=== PATIENT | female | born 1965 | race Caucasian/White ===

== ENCOUNTER → 2019-05-10 07:37 | Outpatient (CLI) | payer BC, SELFPAY ==
[2018-11-09 14:33] VITALS: BMI 31.9
--- NOTE | 2019-05-10 07:39 | BI_ITS ---
MAMMOGRAPHY - UNILATERAL SCREENING: RIGHT BREAST REASON FOR EXAM: Female, 54 years old. Routine annual screening examination (unilateral). PERTINENT HISTORY: Personal history of breast cancer. The patient is status post left mastectomy. TECHNIQUE: Digital unilateral breast lary (3D mammographic acquisition) in the CC and MLO projections. 2-D mediolateral oblique (MLO) and craniocaudad (CC) views of both breasts were obtained. CAD: Full Field Digital Mammography with Computer Added Detection was performed. COMPARISON: Comparison is made with prior ocular examination dated May 06, 2018 and March 10, 2013. FINDINGS: Breast Composition: The breasts are heterogeneously dense, which may obscure small masses. There are no dominant masses or suspicious calcifications. A tissue clip marker is seen in the upper mid slightly medial portion of the right breast. This is unchanged. No other significant abnormalities are identified. There has been no significant change since the prior study. BI/SCREEN MAMM (CAD) W/LARY UNI R IMPRESSION: Stable unilateral screening mammogram. Yearly follow-up mammogram recommended. (A) ASSESSMENT CATEGORY: BIRADS Category 2: Benign. A letter regarding these results will be sent to the patient by the facility within 30 days. Approximately 10% of breast cancers are not detected by mammography. A normal mammogram should not delay biopsy of a clinically suspicious abnormality. [id number] Electronically Signed: Tc Rodriguez, at 9:26 EDT , Service support ,
== END ==
PROVIDERS: Family Provider Family Medicine; PCP Family Medicine; Referring Provider Internal Medicine Medical Oncology; Visit Provider Internal Medicine Medical Oncology
DX: Z12.31 Encounter for screening mammogram for malignant neoplasm of breast (principal); Z85.3 Personal history of malignant neoplasm of breast
CPT/HCPCS: 77061; 77063; 77067; G0279

== ENCOUNTER → 2019-05-21 09:33 | Outpatient (CLI) | payer BC, SELFPAY ==
[2019-05-17 12:56] VITALS: BMI 30.5
--- NOTE | 2019-05-21 09:36 | NM_ITS ---
CLINICAL: 54-year-old female with reported history of carcinoma of the breast with current complaint of diffuse arthralgia. WHOLE BODY 99m Tc MDP RADIONUCLIDE BONE SCINTIGRAPHY COMPARISON: None available FINDINGS: Following the intravenous administration of 25.0 mCi of 99m Tc MDP, whole body bone images reveal: 1. Increased radiopharmaceutical concentration is identified in the upper cervical spine posteriorly on the right, mid cervical spine posteriorly on the left, acromioclavicular and sternoclavicular compartments of both shoulders, posterior midline sacrum, bilateral wrist articulations, posterior compartments of both ankles, the right-left mid and forefoot. 2. The remaining skeletal structures are scintigraphically unremarkable with normal-appearing renal images and urinary bladder activity identified. NM/Bone Scan Whole Body IMPRESSION: 1. The increase in radiopharmaceutical concentration identified in the cervical spine and sacrum, bilateral shoulders, right and left wrists, ankles bilaterally, the right-left mid and forefoot is most consistent with degenerative arthritis. 2. There is no definitive scintigraphic evidence of skeletal metastatic disease or large articulation synovial inflammation on review of whole body projections. Electronically Signed: Archie Garza DO at 9:40 EDT Tel , Service support ,
--- NOTE | 2019-05-21 09:36 | RAD_ITS ---
STUDY: X-RAY CHEST REASON FOR EXAM: Female, 54 years old. History of breast cancer, bone pain TECHNIQUE: PA and lateral views of the chest. COMPARISON: None. FINDINGS: The lungs are clear and expanded. There is no demonstrated pleural abnormality. Normal size heart. Surgical clip projects over the anterior mediastinum/chest. Normal visualized pulmonary arteries. Normal visualized aortic arch and descending thoracic aorta. Normal visualized thoracic spine. Normal visualized ribs, clavicles, and shoulders. There is no demonstrated abnormality of the visualized soft tissue structures of the upper abdomen. RAD/Chest PA and Lateral IMPRESSION: No acute cardiopulmonary process. Electronically Signed: Reji Weeks MD ([facility]) at 15:55 EDT , Service support ,
== END ==
PROVIDERS: Family Provider Family Medicine; PCP Family Medicine; Referring Provider Internal Medicine Medical Oncology; Visit Provider Internal Medicine Medical Oncology
DX: M85.80 Other specified disorders of bone density and structure, unspecified site (principal); Z85.3 Personal history of malignant neoplasm of breast
CPT/HCPCS: 71046; 78306

== ENCOUNTER → 2020-05-12 09:57 | Outpatient (CLI) | payer BC, SELFPAY ==
[2019-06-02 14:20] VITALS: BMI 31.2
--- NOTE | 2020-05-12 09:57 | BI_ITS ---
MAMMOGRAPHY - UNILATERAL SCREENING: RIGHT BREAST REASON FOR EXAM: Female, 55 years old. Routine annual screening examination (unilateral). PERTINENT HISTORY: Personal history of breast cancer. Prior left mastectomy. TECHNIQUE: Digital unilateral breast lary (3D mammographic acquisition) in the CC and MLO projections. 2-D mediolateral oblique (MLO) and craniocaudad (CC) views of both breasts were obtained. CAD: Full Field Digital Mammography with Computer Added Detection was performed. COMPARISON: Comparison is made with prior examination dated 05/10/2019 and 03/10/2013. FINDINGS: Breast Composition: The breasts are heterogeneously dense, which may obscure small masses. There are no dominant masses or suspicious calcifications. A tissue clip marker is once again seen in the upper mid slightly medial portion of the right breast No other significant abnormalities are identified. There has been no significant change since the prior study. BI/SCREEN MAMM (CAD) W/LARY UNI R IMPRESSION: Stable unilateral screening mammogram. Yearly follow-up mammogram recommended. (A) ASSESSMENT CATEGORY: BIRADS Category 2: Benign. A letter regarding these results will be sent to the patient by the facility within 30 days. Approximately 10% of breast cancers are not detected by mammography. A normal mammogram should not delay biopsy of a clinically suspicious abnormality. [id number] Electronically Signed: Tc Rodriguez, at 13:38 EDT , Service support ,
== END ==
PROVIDERS: PCP Family Medicine; Referring Provider Internal Medicine Medical Oncology; Visit Provider Internal Medicine Medical Oncology
DX: Z12.31 Encounter for screening mammogram for malignant neoplasm of breast (principal); Z85.3 Personal history of malignant neoplasm of breast
CPT/HCPCS: 77063; 77067

== ENCOUNTER 2020-10-31 12:34 | Outpatient (RCR) | payer BC, SELFPAY ==
[2019-06-02 14:20] VITALS: BMI 31.2
[2020-10-31] MEDS: COVID-19 VACC, MRNA(PFIZER)/PF 30 MCG/0.3 ML SYRINGE IM (18:14)
[2020-11-21] MEDS: COVID-19 VACC, MRNA(PFIZER)/PF 30 MCG/0.3 ML SYRINGE IM (17:59)
== END 2020-10-31 23:59 ==
LOC: IMMUN 12:34
PROVIDERS: PCP Family Medicine; Referring Provider Family Medicine; Visit Provider Family Medicine
DX: Z23 Encounter for immunization (principal)
CPT/HCPCS: 0001A; 0002A; 91300

== ENCOUNTER → 2021-05-14 10:15 | Outpatient (CLI) | payer BC, SELFPAY ==
[2019-06-02 14:20] VITALS: BMI 31.2
--- NOTE | 2021-05-14 10:19 | BI_ITS ---
MAMMOGRAPHY - UNILATERAL SCREENING: RIGHT BREAST REASON FOR EXAM: Female, 56 years old. Routine annual screening examination (unilateral). PERTINENT HISTORY: Personal history of breast cancer. Prior left mastectomy. Prior right breast biopsy. TECHNIQUE: Digital unilateral breast lary (3D mammographic acquisition) in the CC and MLO projections. 2-D mediolateral oblique (MLO) and craniocaudad (CC) views of both breasts were obtained. CAD: Full Field Digital Mammography with Computer Added Detection was performed. COMPARISON: Comparison is made with prior examination of 05/12/2020 and 05/10/2019. FINDINGS: Breast Composition: The breasts are heterogeneously dense, which may obscure small masses. There are no dominant masses or suspicious calcifications. A tissue clip marker is once again seen in the upper central portion of the right breast. No other significant abnormalities are identified. There has been no significant change since the prior study. BI/SCREEN MAMM (CAD) W/LARY UNI R IMPRESSION: Stable unilateral screening mammogram. Yearly follow-up mammogram recommended. (A) ASSESSMENT CATEGORY: BIRADS Category 2: Benign. A letter regarding these results will be sent to the patient by the facility within 30 days. Approximately 10% of breast cancers are not detected by mammography. A normal mammogram should not delay biopsy of a clinically suspicious abnormality. [id number] Electronically Signed: Tc Rodriguez MD at 11:03 EDT , Service support ,
== END ==
PROVIDERS: PCP Family Medicine; Referring Provider Internal Medicine Medical Oncology; Visit Provider Internal Medicine Medical Oncology
DX: Z12.31 Encounter for screening mammogram for malignant neoplasm of breast (principal); Z85.3 Personal history of malignant neoplasm of breast
CPT/HCPCS: 77063; 77067

== ENCOUNTER → 2022-05-15 | Outpatient (CLI) | payer BC, SELFPAY ==
--- NOTE | 2022-05-15 09:07 | BI_ITS ---
MAMMOGRAPHY - UNILATERAL SCREENING: RIGHT BREAST REASON FOR EXAM: Female, 57 years old. Routine annual screening examination (unilateral). PERTINENT HISTORY: Personal history of breast cancer. History of prior left mastectomy and right breast reduction surgery. TECHNIQUE: Digital unilateral breast lary (3D mammographic acquisition) in the CC and MLO projections. 2-D mediolateral oblique (MLO) and craniocaudad (CC) views of both breasts were obtained. CAD: Full Field Digital Mammography with Computer Added Detection was performed. COMPARISON: Comparison is made with prior study 05/14/2021 and 05/12/2020. FINDINGS: Breast Composition: The breasts are heterogeneously dense, which may obscure small masses. There are no dominant masses or suspicious calcifications. A tissue clip marker is seen in the upper central portion of the right breast. No other significant abnormalities are identified. There has been no significant change since the prior study. BI/SCREEN MAMM (CAD) W/LARY UNI R IMPRESSION: Stable unilateral screening mammogram. Yearly follow-up mammogram recommended. (A) ASSESSMENT CATEGORY: BIRADS Category 2: Benign. A letter regarding these results will be sent to the patient by the facility within 30 days. Approximately 10% of breast cancers are not detected by mammography. A normal mammogram should not delay biopsy of a clinically suspicious abnormality. [id number] Electronically Signed: Tc Rodriguez MD at 9:42 EDT ,
== END | disposition home or self-care (01) ==
LOC: OPBI 09:06
PROVIDERS: PCP Family Medicine; Visit Provider Internal Medicine Medical Oncology
DX: Z12.31 Encounter for screening mammogram for malignant neoplasm of breast (principal)
CPT/HCPCS: 77063; 77067

== ENCOUNTER → 2023-11-17 | Outpatient (CLI) | payer BC, SELFPAY ==
[2023-11-17 10:10] LABS: Absolute Lymphocyte Count 1.97 X10^3/uL (0.83-4.51); Absolute Neutrophil Count 3.3 X10^3/uL (2.0-7.7); Basophil# 0.04 X10^3/uL; Basophil% 0.7 % (0-1); Eosinophil# 0.24 X10^3/uL; Eosinophils% 4.1 % (0-5); Hematocrit 40.3 % (37-47); Hemoglobin 13.2 g/dL (12.0-15.0); Lymphocyte # 1.97 X10^3/ul (0.83-4.51); Lymphocyte % 33.3 % (19-41); Mean Corp Hgb Conc 32.8 g/dL (32-36); Mean Corpuscular Hgb 30.2 pg (27.0-32.0); Mean Corpuscular Volume 92.2 fL (81-99); Mean Platelet Vol. 10.2 fl (6.2-12.0); Monocyte# 0.37 X10^3/uL; Monocyte% 6.3 % (0-10); NRBC Flagged by Analyzer 0 % (0-5); Neutrophil # 3.27 X10^3/uL (2.7-7.7); Neutrophil % 55.3 % (47-70); Platelet Count 312 K/mm3 (150-450); RBC Distribution Width CV 12.2 % (11.6-14.6); RBC Distribution Width SD 41.3 fl (35.1-43.9); Red Blood Count 4.37 M/mm3 (4.2-5.4); White Blood Count 5.9 K/mm3 (4.4-11.0)
[2023-11-17 10:31] LABS: Vitamin D,25 Hydroxy 37.1 ng/mL
[2023-11-17 10:49] LABS: ALB/GLOB Ratio 0.9 RATIO (0.9-2.4); AST(SGOT) 24 U/L (15-37); Alanine Aminotransfer ALT/SGPT 27 U/L (13-56); Albumin, Serum 3.4 g/dL (3.2-5.0); Alkaline Phosphatase 91 U/L (45-117); Anion Gap 5 (5-15); BUN 16 mg/dL (7-18); BUN/Creat Ratio 23.6 RATIO (10-20); Calcium,Total 8.7 mg/dL (8.5-10.1); Chloride 109 mmol/L (98-107); Cholesterol 238 mg/dL (200); Creatinine, Serum 0.68 mg/dL (0.55-1.02); EST Glomerular Filtration Rate 95 mL/min (>60); Est Glom Filt Rate - Afr Amer 115 mL/min (>60); Globulin 3.6 g/dL (2.2-4.2); Glucose 94 mg/dL (74-106); High Density Lipoprotein 61 mg/dL; Potassium 3.9 mmol/L (3.5-5.1); Sodium Level 141 mmol/L (136-145); Thyroid Stim Hormone (TSH) 0.84 uIU/mL (0.358-3.74); Triglycerides 79 mg/dL; Very Low Density Lipoprotein 16 mg/dL (5-40)
== END | disposition home or self-care (01) ==
PROVIDERS: PCP Family Medicine; Referring Provider Family Medicine; Visit Provider Family Medicine
DX: E66.9 Obesity, unspecified (principal); E55.9 Vitamin D deficiency, unspecified
CPT/HCPCS: 36415; 80053; 80061; 82306; 84443; 85025

== ENCOUNTER → 2024-06-08 | Outpatient (CLI) | payer BC, SELFPAY ==
--- NOTE | 2024-06-08 17:00 | RAD_ITS ---
INDICATION: UTI EXAMINATION/TECHNIQUE: X-RAY - XR Abdomen 1 View COMPARISON: No relevant prior comparison study available FINDINGS: BOWEL GAS PATTERN: Non-obstructive. No bowel or stomach distention. FREE AIR: Not assessed on a single supine view. ORGANOMEGALY: Not seen. CALCIFICATIONS: No abnormal calcifications observed. LOWER CHEST: Not included on this exam. BONES AND SOFT TISSUES: No acute pathology. RAD/Abdomen Single View IMPRESSION: Non-obstructive bowel gas pattern. Electronically Signed: Russ Romero MD at 15:18 EDT ,
--- OUTSIDE RECORDS SUMMARY | 2024-06-08 17:33 | XMS RPT_ITS | CCD ---
Author Organization [facility] Care Team Providers Care Rnfa Name Role Phone ANTONI, LORENZO A Unavailable Unavailable DUSTY, MICHELE Unavailable Unavailable SONIANDRIA K Unavailable Unavailable ANTONI, LORENZO A Unavailable Unavailable DUSTY, MICHELE Unavailable Unavailable SONI ANDRIA K Unavailable Unavailable DUSTY, MICHELE Unavailable Unavailable SONIANDRIA K Unavailable Unavailable SONI ANDRIA K Unavailable Unavailable ANTONI, LORENZO A Unavailable Unavailable DUSTY, MICHELE Unavailable Unavailable ANDRIA SONI Unavailable Unavailable BHSHAMARNAFRANKI MILLER J Unavailable Unavailable FRANKI PRATHER J Unavailable Unavailable ANDRIA SONI Unavailable Unavailable Andria Soni Primary Care Provider Unavailable Primary Care Provider Unavailabl e Allergies Allergy Classification Reported Allergen(s) Allergy Type Date of Onset Reaction(s) Facility Adhesive Tape (1 source) Adhesive Tape Substance Allergy 06-01-2013 [facility] Macrolides (antibiotic) (1 source) Azithromycin Drug Allergy 03-21-2009 [facility] (1 source) Adhesive Tape Allergy to substance 06-01-2013 [facility] (1 source) Azithromycin Drug Allergy 03-21-2009 [facility] Medications Completed/Discontinued Medications Medication Drug Class(es) Dates Sig (Normalized) Sig (Original) acetaminophen 500 mg / HYDROcodone bitartrate 5 mg oral tablet (2 sources) Opioid Agonist take 1 tablet by mouth every six hours as needed acetaminophen-HY DROcodone 5-500 mg tablet Take 1 tablet by mouth every 6 hours as needed. 0 Active Comment on above: Take 1 tablet by chrissy th every 6 hours as needed. B.ANI/L.ACI/L.WIL/L. PLAN/L.VIANEY (PROBIOTIC FORMULA ORAL) (2 sources) B.ANI/L.ACI/L.SA L/L.PLAN/L.VIANEY (PROBIOTIC FORMULA ORAL) Take by mouth. 0 Active Comment on above: Take by mouth. buPROPion (2 sources) Aminoketone BUPROPION HCL (WELLBUTRIN ORAL) Take by mouth. 0 Active Comment on above: Take by mouth. gabapentin 300 mg oral capsule (2 sources) Anti-epileptic Agent Start: 07-16-2013 take 1 capsule by mouth every eight hours as needed gabapentin 300 mg capsule Take 1 capsule by mouth three times daily as needed. 90 capsule 6 07/16/2013 Active Comment on above: Take 1 capsule by mo [facility] three times daily as needed. tamoxifen 20 mg oral tablet (2 sources) Estrogen Agonist/Antagonist Start: 03-14-2015 tamoxifen (NOLVADEX) 20 mg tablet TAKE 1 TABLET DAILY 90 tablet 3 03/14/2015 Active Start: 06-01-2013 End: 04-11-2014 take 1 tablet by mouth once daily tamoxifen 20 mg tablet Take 1 tablet by mouth once daily. 90 tablet 3 06/01/2013 04/11/2014 Discontinued Comment on above: [facility] TAKE 1 TABLET DAILY Problems Active Problems Problem Classification Problem Date Documented Da te Episodic/Chronic Cancer of breast (2 sources) Malignant tumor of breast ; Translations: [Malignant neoplasm of unspecified site of unspecified female breast] Onset: 03-22-2013 03-22-2013 Chronic Unclassified (1 source) Unspecified lump in unspecified breast / N63.0(ICD-10) Onset: 05-06-2018 Unclassified (1 source) Malignant neoplasm of unspecified site of left female breast / C50.912(ICD-10) Onset: 05-06-2018 Past or Other Problems Problem Classification Problem Date Documented Da te Episodic/Chronic Other screening for suspected conditions (not mental disorders or infectious disease) (2 sources) Mammography abnormal; Translations: [Other abnormal and inconclusive findings on diagnostic imaging of breast] Onset: 02-16-2013 02-16-2013 Episodic Other skin disorders (2 sources) Sebaceous cyst of skin; Translations: [Sebaceous cyst] Onset: 03-24-2009 03-24-2009 Episodic Unclassified (1 source) Unspecified lump in unspecified breast; Translations: [Unspecified lump in unspecified breast] Onset: 05-06-2018 Unclassified (1 source) Malignant neoplasm of unspecified site of left female breast; Translations: [Malignant neoplasm of unspecified site of left female breast] Onset: 05-06-2018 Results Test Name Value Interpretation Reference Range Facility [facility] 03-25-2023 CNPN Telephone (HEMAWS) ----- ADENGEETHA ([id number]) 1965 F Date Time Provider Department 03/25/23 TRAMAINE BOOTHE During your visit today, we recorded the following information about you: Yoselyn Esquivel 03/25/2023 2:55 PM Signed Patient called asking to transfer back to our office. Last visit was 2013. She is having records faxed to [employer]. She states she is seen annually with mamm. Didi Chouhdary LPN 04/08/2023 1:45 PM Addendum Records received. She is 10 years out from dx. Lashawn says she can continue her f/u with PCP. Left stating the same. Didi Choudhary LPN Allergies As of Date: 03/25/2023 Noted Allergy Reaction TAPE (ADHESIVE TAPE (ROSINS)) 06/01/2013 2 - Rash Z-PACK (AZITHROMYCIN) 03/21/2009 2 - Rash Date Reviewed: 12/06/2013 Reviewed by: Kitty Kohler Ma - Fully Assessed Reason for Visit: Appointment [[id number]] Prescriptions as of 04/08/2023 - tamoxifen (NOLVADEX) 20 mg tablet TAKE 1 TABLET DAILY - BUPROPION HCL (WELLBUTRIN ORAL) Take by mouth. - acetaminophen-HYDROcodone 5-500 mg tablet Take 1 tablet by mouth every 6 hours as needed. - B.ANI/L.ACI/L.WIL/L.PLAN/ L.VIANEY (PROBIOTIC FORMULA ORAL) Take by mouth. - gabapentin 300 mg capsule Take 1 capsule by mouth three times daily as needed. Problem List As Of Date 03/25/2023 Noted Resolved SEBACEOUS CYST [L72.3] 03/24/2009 Abnormal mammogram [R92.8] 02/16/2013 Breast cancer [C50.919] 03/22/2013 Encounter Status:Closed by DIDI CHOUDHARY LPN on 04/08/[address] [facility] MAMMO DIAGNOSTIC WITH LARY B ILATERALon 05-06-2018 MAMMO DIAGNOSTIC WITH LARY BILATERAL EXAM: US BREAST LIMITED UNILATERAL LEFT, MAMMO DIAGNOSTIC WITH LARY BILATERAL,05/06/2018 10:41 AM (accession [id number]), 05/06/2018 11:20 AM ([id number])CLINIC AL INDICATIONS: Left mastectomy and reconstruction. PalpableabnormalityCOMPAR ADRI: Compared to prior study dated April 23, 2017, March 20, 2016,July 21, 2015, September 01, 2014MAMMOGRAM TECHNIQUE:2-D MLO and CC views were obtained of the right breasts. 3-D MLO and CCdigital tomosynthesis images were also acquired. Left MLO and CC views withspot compression were obtained. Computer aided detection was utilized. MAMMOGRAPHIC FINDINGS: The breasts are heterogeneously dense, which may obscure small masses. Rightbreast is unchanged in appearance is stable biopsy clip. No suspicious masses,suspicious calcifications or areas of distortion identified in the rightbreast.Images were taken the left breast in the region the patient's symptoms theupper outer aspect. On some views are suggested of fat-containing lesions.There are no definite suspicious findings.ULTRASOUND TECHNIQUE:Multiple real-time juares-scale images of the left breast in the 1:00 o'clockaxis are performed. Color Doppler was used to assess vascular flow.ULTRASOUND FINDINGS:2 adjacent hypoechoic masses are seen adjacent to the patient's implant in thesymptomatic region and 1:00 zone 3+. The first measures 1.2 x 0.6 x 1.4 cm andthe second measures 1.0 x 0.5 x 1.1 cm. When compared to the exam of 2014 this may represent coalescence of the previously seen fat necrosis inthis region. Per the patient these have felt relatively stable since the 2014ex. Additionally there are suggestions represents fat necrosis in themammogram. These are therefore considered probably benign.IMPRESSION:1. Probable benign fat necrosis in the symptomatic region of the leftreconstructed breast. Six-month follow-up left ultrasound recommended todocument stability.2. Negative right mammogram.BI-RADS: 3: Probably benignRecommendation: 6-month follow-up.Recommendation Laterality: Left Abnormal [facility] MAMMO DIAGNOSTIC WITH LARY R IGHTon 05-06-2018 MAMMO DIAGNOSTIC WITH LARY RIGHT EXAM: MAMMO DIAGNOSTIC WITH LARY RIGHT, 05/06/2018 09:40 AMCLINICAL INDICATIONS: 53-year-old female with history of left breast IDCstatus post mastectomy in 2012. No current breast complaints.COMPARISON: No prior studies available for comparison.TECHNIQUE:2-D MLO and CC views were obtained of the right breast. 3-D MLO and CC digitaltomosynthesis images were also acquired. Computer aided detection wasutilized.FINDINGS: The breast has scattered areas of fibroglandular density. Stable biopsy clipin the upper central right breast. There are no new suspicious masses,calcifications, or architectural distortions. IMPRESSION:No specific mammographic evidence of malignancy.BI-RADS: 2: BenignRecommendation: Routine mammography.Recommendatio n Laterality: Right I personally viewed and interpreted these images and I have reviewed andapproved this report. Normal [facility] US BREAST LIMITED UNILATERAL LEFTon 05-06-2018 US BREAST LIMITED UNILATERAL LEFT EXAM: US BREAST LIMITED UNILATERAL LEFT, MAMMO DIAGNOSTIC WITH LARY BILATERAL,05/06/2018 10:41 AM (accession [id number]), 05/06/2018 11:20 AM ([id number])CLINIC AL INDICATIONS: Left mastectomy and reconstruction. PalpableabnormalityCOMPAR ADRI: Compared to prior study dated April 23, 2017, March 20, 2016,July 21, 2015, September 01, 2014MAMMOGRAM TECHNIQUE:2-D MLO and CC views were obtained of the right breasts. 3-D MLO and CCdigital tomosynthesis images were also acquired. Left MLO and CC views withspot compression were obtained. Computer aided detection was utilized. MAMMOGRAPHIC FINDINGS: The breasts are heterogeneously dense, which may obscure small masses. Rightbreast is unchanged in appearance is stable biopsy clip. No suspicious masses,suspicious calcifications or areas of distortion identified in the rightbreast.Images were taken the left breast in the region the patient's symptoms theupper outer aspect. On some views are suggested of fat-containing lesions.There are no definite suspicious findings.ULTRASOUND TECHNIQUE:Multiple real-time juares-scale images of the left breast in the 1:00 o'clockaxis are performed. Color Doppler was used to assess vascular flow.ULTRASOUND FINDINGS:2 adjacent hypoechoic masses are seen adjacent to the patient's implant in thesymptomatic region and 1:00 zone 3+. The first measures 1.2 x 0.6 x 1.4 cm andthe second measures 1.0 x 0.5 x 1.1 cm. When compared to the exam of 2014 this may represent coalescence of the previously seen fat necrosis inthis region. Per the patient these have felt relatively stable since the 2014exam. Additionally there are suggestions represents fat necrosis in themammogram. These are therefore considered probably benign.IMPRESSION:1. Probable benign fat necrosis in the symptomatic region of the leftreconstructed breast. Six-month follow-up left ultrasound recommended todocument stability.2. Negative right mammogram.BI-RADS: 3: Probably benignRecommendation: 6-month follow-up.Recommendation Laterality: Left Abnormal [facility] Encounters Encounter Date Encounter Type Care Provider Facility Start: 03-25-2023 Telephone encounter Tramaine adkins DO Work Phone: Hematology/Oncology Comment on above: Appointment Start: 05-06-2018 Patient encounter FRANKI SANCHEZ I [facility] Start: 05-06-2018 Patient encounter LORENZO Vivar [facility] Start: 10-22-2017 Patient encounter MICHELE MONTANO [facility] Start: 03-30-2014 End: 03-30-2014 Telephone encounter Lashawn Ponce APRN.[employer] Work Phone: Mammogram Procedures Date Procedure Procedure Detail Performing Clinician Start: 02-07-2014 Mammography Lashawn [place] [facility] Work Phone: Plan of Treatment Date Care Activity Detail Author Start: 04-18-2023 Influenza vaccination INFLUENZA (#1) [facility] Start: 08-18-2022 DEPRESSION ASSESSMENT DEPRESSION ASS ESSMENT [facility] Start: 04-18-2021 Influenza vaccination INFLUENZA (Sea son Ended) [facility] Start: 02-01-2018 HPV TESTING HPV TESTING [facility] Start: 02-01-2018 PAP TESTING PAP TESTING [facility] Start: 02-25-2016 Screening for malign ant neoplasm of colon [facility] Start: 02-25-2016 SHINGRIX VACCINE (1 of 2) SHINGRIX V ACCINE (1 of 2) [facility] Start: 02-07-2015 Mammography MAMMOGRAM [facility] Start: 2011 COLOGUARD (FIT-DNA) COLOGUARD (FIT-D NA) [facility] Start: 2011 Colonoscopy COLONOSCOPY [facility] Start: 2011 COLORECTAL CANCER SCREENING COLORECTAL CANCER SCREENING [facility] Start: [address] COLONOGRAPHY [facility] Start: 2011 DIABETES SCREEN DIABETES SCREEN [facility] Start: 2011 FECAL OCCULT BLOOD FECAL OCCULT BLOO D [facility] Start: 2011 LIPID SCREEN LIPID SCREEN [facility] Start: 2011 SIGMOIDOSCOPY SIGMOIDOSCOPY [facility] Start: 1985 Urine microalbumin profile DTAP,TDAP ,TD (1 - Tdap) [facility] Start: 02-25-1984 HEPATITIS C SCREENING HEPATITIS C SC REENING [facility] Start: 02-25-1984 HIV SCREENING HIV SCREENING [facility] Start: 1978 Adult depression scr eening assessment DEPRESSION SCREENING [facility] Start: 1965 COVID-19 VACCINE (#1) COVID-19 VACCI NE (#1) [facility] Start: 1965 HEPATITIS B (1 of 3 - 3-dose series) HEPATITIS B (1 of 3 - 3-dose series) [facility] Payers Date Payer Category Payer Unknown [id number] 2013 Unknown 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 [id number] 2013-Present Indemnity [id number] Social History Date Type Detail Facility Start: 02-01-2013 End: 12-06-2013 Tobacco smoking status NHIS Never smoker [facility] Work Phone: Start: 02-01-2013 End: 12-06-2013 Tobacco use and exposure Never used [facility] Start: 12-06-2013 End: 03-31-2022 Alcohol intake Current drinker of alcohol (finding) [facility] Start: 06-01-2013 Alcohol Comment rarely [facility] Start: 1965 Sex Assigned At Not on file [facility] Start: 03-31-2022 History of Social function [facility] Start: 03-31-2022 Tobacco use panel [facility] Note 04-08-2023 Telephone Encounter - Didi Choudhary LPN - 04/08/2023 11:42 AM EDTTelephone Encounter - Yoselyn Esquivel - 03/25/2023 2:53 PM EDT Note Date & Type Note Facility 04-08-2023 Miscellaneous Notes Formattin g of this note might be different from the original. Records received. She is 10 years out from dx. Lashawn says she can continue her f/u with PCP. Left VM stating the same. Didi Choudhary LPN Patient called asking to transfer back to our office. Last visit was 2013. She is having records faxed to [phone]. She states she is seen annually with mamm. documented in this encounter [facility] Note 03-30-2014 Telephone Encounter - Lashawn Ponce (Police Dispatcher) - 03/30/2014 3:24 PM EDTTelephone Encounter - Coleen Ken - 03/30/2014 2:46 PM EDT Note Date & Type Note Facility 03-30-2014 Miscellaneous Notes I do not see it in EPIC. Lashawn Ponce CNP Did the patient ever provide a report following her imaging at [facility]? Thanks. documented in this encounter [facility] Summary Purpose Family History No Family History Records FoundNo Family History Records Found Advance Directives No Advanced Directives Records FoundNo Advanced Directives Records Found Additional Source Comments INFORMATION SOURCE (unrecogn ized section and content) DATE CREATED AUTHOR 06/02/2018 [facility] DATE CREATED AUTHOR AUTHOR'S EVENS ATION 04/09/2023 [facility] Source Comments (unrecognize d section and content) In the event this informatio n is protected by the Federal Confidentiality of Alcohol and Drug Abuse Patient Records regulations: The Federal rules restrict any use of the information to criminally investigate or prosecute any alcohol or drug abuse patient.[facility] the event this information is protected by the Federal Confidentiality of Alcohol and Drug Abuse Patient Records regulations: The Federal rules restrict any use of the information to criminally investigate or prosecute any alcohol or drug abuse patient.[facility] Reason for Visit (unrecogniz ed section and content) Reason Comments Appointment FOR RECORDS PERTAINING TO PATIENTS WHO ARE OR HAVE BEEN ENROLLED IN A CHEMICAL DEPENDENCY/SUBSTANCEABUSE PROGRAM, SOME INFORMATION MAY BE OMITTED. This clinical summary was aggregated from multiple sources. Caution should be exercised in using it in the provision of clinical care. This summary normalizes information from multiple sources, and as a consequence, information in this document may materially change the coding, format and clinical context of patient data. In addition, data may be omitted in some cases. CLINICAL DECISIONS SHOULD BE BASED ON THE PRIMARY CLINICAL RECORDS. [facility] [employer] [facility]. provides no warranty or guarantee of the accuracy or completeness of information in this document.
== END | disposition home or self-care (01) ==
PROVIDERS: PCP Family Medicine; Referring Provider Family Medicine; Visit Provider Family Medicine
DX: R10.9 Unspecified abdominal pain (principal); N39.0 Urinary tract infection, site not specified
CPT/HCPCS: 74018

== ENCOUNTER → 2024-12-03 | Outpatient (CLI) | payer BC, SELFPAY ==
--- NOTE | 2024-12-03 15:18 | BI_ITS ---
EXAM: SCREEN MAMM (CAD) W/LARY UNI R 12/03/2024 CLINICAL HISTORY: F, Age 59 y/o , SCREENING TECHNIQUE: Right screening digital breast tomosynthesis with 2D and 3D images. Computer aided detection. COMPARISON: Prior exam(s) dated 05/07/2022, 05/14/2021. FINDINGS: TISSUE DENSITY: The breast tissue is heterogenously dense, which may obscure small masses. The mammogram demonstrates that the patient has dense breasts. Supplemental screening with whole breast ultrasound or MRI may be considered for further evaluation. Bilateral Breast Mammographic Findings: No significant masses, calcifications or other abnormalities are identified. BI/SCREEN MAMM (CAD) W/LARY UNI R IMPRESSION: Right Breast: BIRADS 1 NEGATIVE. OVERALL FINAL ASSESSMENT: BIRADS 1 NEGATIVE. RECOMMENDATION: Routine annual follow-up in 1 Year A letter with findings and recommendations will be mailed to the patient. Reading Location: [id number]
== END | disposition home or self-care (01) ==
LOC: OPBI 15:14
PROVIDERS: PCP Family Medicine; Referring Provider Family Medicine; Visit Provider Family Medicine
DX: Z12.31 Encounter for screening mammogram for malignant neoplasm of breast (principal)
CPT/HCPCS: 77063; 77067

== ENCOUNTER → 2024-12-15 | Outpatient (CLI) | payer BC, SELFPAY ==
--- NOTE | 2024-12-15 14:55 | BD_ITS ---
PROCEDURE: DEXA BONE DENSITY STUDY 12/15/2024 REASON FOR EXAM: F, age 59 y/o . Patient is postmenopausal.. TECHNIQUE: DEXA scan of sites with data reported below. Scanner utilized: [employer]. REFERENCE LINKS: ISCD Adult Positions COMPARISON: None FINDINGS: BMD and T-SCORES Lumbar spine: 0.804 g/cm2, T-score -2.2 Levels: L1 through L4 Left femoral neck: 0.676 g/cm2, T-score -1.6 Left total hip: 0.816 g/cm2, T-score -1.0 Right femoral neck: 0.645 g/cm2, T-score -1.8 Right total hip: 0.770 g/cm2, T-score -1.4 The World Health Organization has defined the following categories based on bone density: Normal bone density: T-score equal to or greater than -1.0 Osteopenia: T-score between -1.0 and -2.5 Osteoporosis: T-score equal to or less than -2.5 FRAX (or Comparable) Fracture Risk Assessment: 10 Year Probability of Fracture: Major Osteoporotic Fracture: 14% Hip Fracture: 1.7% (Note: FRAX is not to be reported in setting of normal range bone density, osteoporosis on DEXA, known history of osteoporosis, prior osteoporotic hip or vertebral fracture, or for any patient undergoing pharmacological treatment for bone loss.) The National Osteoporosis Foundation (NOF) recommends pharmacological treatment for patients with a FRAX 10-year risk of 3% or higher for a hip fracture, or 20% or higher for a major osteoporotic fracture, to prevent osteoporosis and reduce fracture risk. The patient does meet the pharmacological treatment recommendations for prevention of osteoporosis. BD/Dexa Bone Density Study IMPRESSION: OSTEOPENIA. Recommend follow-up as clinically warranted. Reading Location: [id number]
== END | disposition home or self-care (01) ==
LOC: OPBD 14:51
PROVIDERS: PCP Family Medicine; Referring Provider Family Medicine; Visit Provider Family Medicine
DX: Z91.89 Other specified personal risk factors, not elsewhere classified (principal)
CPT/HCPCS: 77080

== ENCOUNTER → 2024-12-22 | Outpatient (CLI) | payer BC, SELFPAY ==
--- NOTE | 2024-12-22 12:58 | US_ITS ---
PROCEDURE: BREAST LIMITED UNILATERAL 12/22/2024 REASON FOR EXAM: 59-year-old female presents with right breast pain. Personal history of left breast cancer status post mastectomy with reconstruction in 2012. TECHNIQUE: Targeted right breast ultrasound. COMPARISON: Mammogram 12/03/2024. FINDINGS: Right breast ultrasound was targeted to the lateral right breast. There are no suspicious sonographic findings in the area of patient's reported pain in the lateral right breast. Otherwise, the breast tissue appears sonographically normal. No cyst, solid mass, or suspicious shadowing. US/Breast Limited Unilateral IMPRESSION: Impression: There are no suspicious findings in the area of patient's reported pain in the lateral right breast. Clinical management is recommended for the pain. Birads: BI-RADS 1: NEGATIVE. RECOMMEND ANNUAL MAMMOGRAPHIC SCREENING. Reading Location: [id number]
== END | disposition home or self-care (01) ==
PROVIDERS: PCP Family Medicine
DX: N64.4 Mastodynia (principal)
CPT/HCPCS: 76642

== ENCOUNTER → 2025-01-24 | Outpatient (CLI) | payer BC, SELFPAY ==
--- NOTE | 2025-01-24 14:55 | RAD_ITS ---
PROCEDURE: HAND MIN 3 VIEWS 01/24/2025 REASON FOR EXAM: LEFT HAND INJURY TECHNIQUE: 4 view(s) of the left hand COMPARISON: None. FINDINGS: Normal visualized carpal bones. Normal first metacarpus. Normal second through fifth metacarpi. Normal phalanges. There is no demonstrated fracture. Normal carpal articulations. Normal carpometacarpal (CMC) articulation of the thumb. Normal metacarpophalangeal (MCP) joint of the thumb. Normal interphalangeal (IP) joint of the thumb. Normal second through fifth carpometacarpal (CMC) joints. Normal second through fifth metacarpophalangeal (MCP) joints. Normal proximal interphalangeal (PIP) and distal interphalangeal (DIP) joints of the second through fifth fingers. RAD/Hand Min 3 Views IMPRESSION: No evidence for acute abnormality. Reading Location: [facility]
--- OUTSIDE RECORDS SUMMARY | 2025-01-24 23:52 | XMS RPT_ITS | CCD ---
Author Organization [facility] CliniSyok Care Team Providers Care Group Art Supervisor Name Role Phone ANTONI, LORENZO A Unavailable Unavailable DUSTY, MICHELE Unavailable Unavailable SNOI, ANDRIA K Unavailable Unavailable ANTONI, LORENZO A Unavailable Unavailable DUSTY, MICHELE Unavailable Unavailable SONI, ANDRIA K Unavailable Unavailable DUSTY, MICHELE Unavailable Unavailable SONI, ANDRIA K Unavailable Unavailable SONI, ANDRIA K Unavailable Unavailable ANTONI, LORENZO A Unavailable Unavailable DUSTY, MICHELE Unavailable Unavailable SONI, ANDRIA K Unavailable Unavailable BHAVNAGRI, SHARUKH J Unavailable Unavailable BHAVNAGRI, SHARUKH J Unavailable Unavailable SONI, ANDRIA K Unavailable Unavailable Soni, Andria K Primary Care Provider [phone] Unavailable Primary Care Provider UnavailEstrella Chopra MD Primary Care Provider Estrella Camilo MD Attending Provider Estrella Camilo MD Referring Provider McMorrow FERRIS WHEEL ATTENDANT-CYaw Attending Provider McMorrow FERRIS WHEEL ATTENDANT-C, Yaw Referring Provider Ton, Oresteson Referring Unavailable Ton, Chalon Primary Care Unavailable Ton, Chalon Attending Unavailable Ton, Chalon Referring Unavailable Ton, Chalon Primary Care Unavailable Ton, Chalon Attending Unavailable Ton, Chalon Referring Unavailable Ton, Chalon Primary Care Unavailable Ton, Chalon Attending Unavailable Ton, Chalon Primary Care Unavailable McMorrow FERRIS WHEEL ATTENDANTYaw Attending Unavailable McMorrow FERRIS WHEEL ATTENDANTYaw Referring Unavailable Allergies Allergy Classification Reported Allergen(s) Allergy Type Date of Onset Reaction(s) Facility Adhesive Tape (1 source) Adhesive Tape Substance Allergy 3 [facility] Macrolides (antibiotic) (1 source) Azithromycin Drug Allergy 9 [facility] (1 source) Adhesive Tape Allergy to substance 0 [facility] Work Phone: (4 sources) Azithromycin Drug Allergy 9 [facility] (1 source) Adhesive Tape Allergy to substance 3 [facility] (3 sources) Adhesive Tape; Translations: [adhesive tape] Allergy to substance 2 [facility] (1 source) Azithromycin Drug Allergy 1 [facility] Repository Medications Completed/Discontinued Medications Medication Drug Class(es) Dates [...] on above: Take 1 capsule by mo [facility] three times daily as needed. [...] above: Take 1 tablet by chrissy th once daily. TAKE 1 TABLET DAILY Problems Active Problems Problem Classification Problem Date Documented Da te Episodic/Chronic Cancer of breast (2 sources) Malignant tumor of breast ; Translations: [Malignant neoplasm of unspecified site of unspecified female breast] Onset: 03-22-2013 03-22-2013 Chronic Cancer of breast (3 sources) History of malignant neoplasm of breast; Translations: [Personal history of malignant neoplasm of breast] 06-06-2021 Episodic Comment on above: Left Breast Cancer s tage IA(pT1a pN0 M0), ER/CO positive, Her2 negative.Finished adjuvant Tamoxifen therapy in April 2018.No evidence of disease clinically. Nonmalignant breast conditions (3 sources) Mammographic breast tissue appearance; Translations: [Dense breast tissue on mammogram] Onset: 12-27-2024 06-03-2022 Episodic Other screening for suspected conditions (not mental disorders or infectious disease) (3 sources) Mammography abnormal; Translations: [Other abnormal and inconclusive findings on diagnostic imaging of breast] Onset: 02-16-2013 02-16-2013 Episodic Residual codes; unclassified (3 sources) Generalized aches and pains; Translations: [Pain, unspecified] 05-17-2019 Episodic Residual codes; unclassified (1 source) Other specified personal risk factors, not elsewhere classified; Translations: [Other specified personal risk factors, not elsewhere classified] Onset: 12-18-2024 Episodic Unclassified (1 source) Unspecified lump in unspecified breast / N63.0(ICD-10) Onset: 05-06-2018 Unclassified (1 source) Malignant neoplasm of unspecified site of left female breast / C50.912(ICD-10) Onset: 05-06-2018 Past or Other Problems Problem Classification Problem Date Documented Da te Episodic/Chronic Abdominal pain (1 source) Unspecified abdominal pain; Translations: [Unspecified abdominal pain] Onset: 06-30-2024 Episodic Other skin disorders (2 sources) Sebaceous [...] Test Name Value Interpretation Reference Range Facility Breast Limited Unilateralon 12-22-[address] [facility] Services [address] [place] [address] Breast Limited Unilateral MR#: [id number] Acct: [id number] Name: GRACIELA SAMANIEGO Rep #: [id number] : 1965 F 59 From: Safia Mishra MD PCP: Dr. Estrella Camilo MD Status: REG CLI Study: Breast Limited Unilateral Date of Exam: Exam# [id number] Ordering Dr: Yaw Delvalle NP, NP -Veena PROCEDURE: BREAST LIMITED UNILATERAL 12/22/2024 REASON FOR EXAM: 59-year-old female presents with right breast pain. Personal history of left breast cancer status post mastectomy with reconstruction in 2012. TECHNIQUE: Targeted right breast ultrasound. COMPARISON: Mammogram 12/03/2024. FINDINGS: Right breast ultrasound was targeted to the lateral right breast. There are no suspicious sonographic findings in the area of patient's reported pain in the lateral right breast. Otherwise, the breast tissue appears sonographically normal. No cyst, solid mass, or suspicious shadowing. US/Breast Limited Unilateral IMPRESSION: Impression: There are no suspicious findings in the area of patient's reported pain in the lateral right breast. Clinical management is recommended for the pain. Birads: BI-RADS 1: NEGATIVE. RECOMMEND ANNUAL MAMMOGRAPHIC SCREENING. Reading Location: [facility] CC: Yaw Delvalle; Dr. Estrella Camilo MD Automatic Edger: Signed Normal [facility] Dexa Bone Density Studyon Dexa Bone Density Study [facility] [address] [place] [address] Dexa Bone Density Study MR#: [id number] Acct: [id number] Name: GRACIELA SAMANIEGO Rep #: [id number] : 1965 F 59 From: Naheed Vivar PCP: Dr. Estrella Camilo MD Status: DEP CLI Study: Dexa Bone Density Study Date of Exam: 12/15/24 Exam# [id number] Ordering Dr: Estrella Camilo MD PROCEDURE: DEXA BONE DENSITY STUDY 12/15/2024 REASON FOR EXAM: F, age 59 y/o . Patient is postmenopausal.. TECHNIQUE: DEXA scan of sites with data reported below. Scanner utilized: Mimiboard. REFERENCE LINKS: ISCD Adult Positions COMPARISON: None FINDINGS: BMD and T-SCORES Lumbar spine: 0.804 g/cm2, T-score -2.2 Levels: L1 through L4 Left femoral neck: 0.676 g/cm2, T-score -1.6 Left total hip: 0.816 g/cm2, T-score -1.0 Right femoral neck: 0.645 g/cm2, T-score -1.8 Right total hip: 0.770 g/cm2, T-score -1.4 The World Health Organization has defined the following categories based on bone density: Normal bone density: T-score equal to or greater than -1.0 Osteopenia: T-score between -1.0 and -2.5 Osteoporosis: T-score equal to or less than -2.5 FRAX (or Comparable) Fracture Risk Assessment: 10 Year Probability of Fracture: Major Osteoporotic Fracture: 14% Hip Fracture: 1.7% (Note: FRAX is not to be reported in setting of normal range bone density, osteoporosis on DEXA, known history of osteoporosis, prior osteoporotic hip or vertebral fracture, or for any patient undergoing pharmacological treatment for bone loss.) The National Osteoporosis Foundation (NOF) recommends pharmacological treatment for patients with a FRAX 10-year risk of 3% or higher for a hip fracture, or 20% or higher for a major osteoporotic fracture, to prevent osteoporosis and reduce fracture risk. The patient does meet the pharmacological treatment recommendations for prevention of osteoporosis. BD/Dexa Bone Density Study IMPRESSION: OSTEOPENIA. Recommend follow-up as clinically warranted. Reading Location: [id number] CC: Dr. Estrella Camilo MD Automatic Edger: Signed Normal [facility] SCREEN MAMM (CAD) W/LARY [facility] Dmitry 12-03-2024 SCREEN MAMM (CAD) W/LARY UNI R [facility] [address] [place] [address] SCREEN MAMM (CAD) W/LARY UNI R MR#: [id number] Acct: [id number] Name: GRACIELA SAMANIEGO Rep #: [id number] : 1965 F 59 From: Safia Mishra MD PCP: Dr. Estrella Camilo MD Status: REG CLI Study: SCREEN MAMM (CAD) W/LARY UNI R Date of Exam: 0 12/03/24 Exam# [id number] Ordering Dr: Estrella Camilo MD EXAM: SCREEN MAMM (CAD) W/LARY UNI R 12/03/2024 CLINICAL HISTORY: F, Age 59 y/o , SCREENING TECHNIQUE: Right screening digital breast tomosynthesis with 2D and 3D images. Computer aided detection. COMPARISON: Prior exam(s) dated 05/07/2022, 05/14/2021. FINDINGS: TISSUE DENSITY: The breast tissue is heterogenously dense, which may obscure small masses. The mammogram demonstrates that the patient has dense breasts. Supplemental screening with whole breast ultrasound or MRI may be considered for further evaluation. Bilateral Breast Mammographic Findings: No significant masses, calcifications or other abnormalities are identified. BI/SCREEN MAMM (CAD) W/LARY UNI R IMPRESSION: Right Breast: BIRADS 1 NEGATIVE. OVERALL FINAL ASSESSMENT: BIRADS 1 NEGATIVE. RECOMMENDATION: Routine annual follow-up in 1 Year A letter with findings and recommendations will be mailed to the patient. Reading Location: [facility] CC: Dr. Estrella Camilo MD Automatic Edger: Signed Normal [facility] Abdomen Single Viewon [address] [facility] [address] [place], [place] [address] Abdomen Single View MR#: [id number] Acct: [id number] Name: GRACIELA SAMANIEGO Rep #: [id number] : 1965 F 59 From: Russ Benjamin PCP: Dr. Estrella Caimlo MD Status: REG CLI Study: Abdomen Single View Date of Exam: 06/08/24 Exam# [id number] Ordering [place]: [place] [id number] INDICATION: UTI EXAMINATION/TECHNIQUE: X-RAY - XR Abdomen 1 View COMPARISON: No relevant prior comparison study available FINDINGS: BOWEL GAS PATTERN: Non-obstructive. No bowel or stomach distention. FREE AIR: Not assessed on a single supine view. ORGANOMEGALY: Not seen. CALCIFICATIONS: No abnormal calcifications observed. LOWER CHEST: Not included on this exam. BONES AND SOFT TISSUES: No acute pathology. RAD/Abdomen Single View IMPRESSION: Non-obstructive bowel gas pattern. Electronically Signed: Russ Romero MD at 15:18 EDT , CC: Dr. Estrella Camilo MD Automatic Edger: Signed Normal [facility] Absolute lymphocyte countOrd ered By: Estrella Camilo on 11-17-2023 Lymphocytes Auto (Unsp spec) [#/Vol] 1.97 10*3/uL 0.83-4.51 [facility] Automated lymphocyte count a s percentage of total leukocytesOrdered By: Estrella Camilo on 11-17-2023 Lymphocytes/100 WBC Auto (Unsp spec) 33.3 % 19-41 [facility] Basophil percentageOrdered B y: Estrella Camilo on 11-17-2023 Basophils/100 WBC (Bld) 0.7 % 0-1 [facility] Bilirubin [Mass/Vol] 0.50 mg/dL 0.20-1.00 [facility] Comment on above: For patients on eltr ombopag therapy, use of Dimension [place] TBIL is not recommended. Chloride [Moles/Vol] 109 mmol/L 98-107 [facility] Cholesterol [Mass/Vol] 238 mg/dL <200 [facility] Comment on above: <200 mg/dL Desirable 200-240 mg/dL Borderline >240 mg/dL High Risk Eosinophils/100 WBC (Bld) 4.1 % 0-5 [facility] Glucose [Mass/Vol] 94 mg/dL 74-106 [facility] Hemoglobin (Bld) [Mass/Vol] 13.2 g/dL 12.0-15.0 [facility] Monocytes/100 WBC (Bld) 6.3 % 0-10 [facility] Neutrophils (Bld) [#/Vol] 3.3 10*3/uL 2.0-7.7 [facility] Neutrophils/100 WBC (Bld) 55.3 % 47-70 [facility] Potassium [Moles/Vol] 3.9 mmol/L 3.5-5.1 [facility] Protein [Mass/Vol] 7.0 g/dL 6.4-8.2 [facility] Sodium [Moles/Vol] 141 mmol/L 136-145 [facility] Triglyceride [Mass/Vol] 79 mg/dL <199 [facility] Comment on above: The drugs N-Acetylcy steine and Metamizole may falsely depress this assay.Serum Triglycerides Reference Interval Normal <150 mg/dL Borderline high 150 - 199 mg/dL High 200 - 499 mg/dL Very High > or = 500 mg/dL WBC (Bld) [#/Vol] 5.9 10*3/uL 4.4-11.0 [facility] Determination of erythrocyte mean corpuscular volume (MCV)Ordered By: Estrella Camilo on 11-17-2023 MCV (RBC) [Entitic vol] 92.2 fL 81-99 [facility] Erythrocyte distribution wid th ratioOrdered By: Estrella Ton on 11-17-2023 Erythrocyte distribution width (RBC) [Ratio] 12.2 % 11.6-14.6 [facility] Erythrocyte distribution wid th standard deviationOrdered By: Estrella Camilo on 11-17-2023 Erythrocyte distribution width (RBC) [Entitic vol] 41.3 fL 35.1-43.9 [facility] Hematocrit Auto (Bld) [Volum e fraction]Ordered By: Estrella Camilo on 11-17-2023 Hematocrit (Bld) [Volume fraction] 40.3 % 37-47 [facility] Immature granulocytes/100 WB C Auto (Bld)Ordered By: Estrella Camilo on 11-17-2023 Immature granulocytes/100 WBC (Bld) 0.300 % 0.0-0.9 [facility] Comment on above: IG% - Immature Granu locytes (promyelocytes, myelocytes and metamyelocytes) > 1% indicates that a LEFT SHIFT is Present. Laboratory - Chemistry and C hemistry - challengeOrdered By: Estrella Camilo on 11-17-2023 Albumin/Globulin [Mass ratio] 0.9 {ratio} 0.9-2.4 [facility] ALP [Catalytic activity/Vol] 91 U/L 45-117 [facility] ALT [Catalytic activity/Vol] 27 U/L 13-56 [facility] Cholesterol in HDL [Mass/Vol] 61 mg/dL >40 [facility] Comment on above: The drugs N-Acetylcy steine and Metamizole may falsely depress this assay. Reference Range HDL <40 mg/dL Low HDL Cholesterol HDL >or= 60 mg/dL High HDL Cholesterol Cholesterol in LDL [Mass/Vol] 161 mg/dL 0-130 [facility] CO2 [Moles/Vol] 27.0 mmol/L 21.0-32.0 [facility] Globulin (S) [Mass/Vol] 3.6 g/dL 2.2-4.2 [facility] Urea nitrogen/Creatinine [Mass ratio] 23.6 mg/mg 10-20 [facility] Laboratory - Hematology and Cell countsOrdered By: Estrella Camilo on 11-17-2023 MCH (RBC) [Entitic mass] 30.2 pg 27.0-32.0 [facility] MCHC (RBC) [Mass/Vol] 32.8 g/dL 32-36 [facility] Nucleated RBC/100 WBC (Bld) [Ratio] 0 % 0-5 [facility] Platelet mean volume (Bld) [Entitic vol] 10.2 fL 6.2-12.0 [facility] Platelets (Bld) [#/Vol] 312 10*3/uL 150-450 [facility] No Panel InformationOrdered By: Estrella Camilo on 11-17-2023 Estimated GFR (MDRD) Amer 115 mL/min >60 [facility] Comment on above: GFR Calc Estimated GFR (MDRD) Non-Af Amer 95 mL/min >60 [facility] Comment on above: Non- GFR Calc Vitamin D 25-Hydroxy 37.1 ng/mL [facility] Comment on above: Vitamin D 25(OH) Sta tus Range Deficiency <20 ng/mL (50nmol/L) Insufficiency 20 - 30 ng/mL (50 - 75 nmol/L) Sufficiency 30 - 100 ng/mL (75 - 250 nmol/L) Toxicity >100 ng/mL (>250 nmol/L) VLDL Cholesterol 16 mg/dL 5-40 [facility] RBC Auto (Bld) [#/Vol]Ordere d By: Estrella Camilo on 11-17-2023 RBC (Bld) [#/Vol] 4.37 10*6/uL 4.2-5.4 [facility] Serum or plasma calcium xuan urement (mass/volume)Ordered By: Estrella Camilo on 11-17-2023 Calcium [Mass/Vol] 8.7 mg/dL 8.5-10.1 [facility] Serum or plasma creatinine m easurement (mass/volume)Ordered By: Estrella Camilo on 11-17-2023 Creatinine [Mass/Vol] 0.68 mg/dL 0.55-1.02 [facility] Comment on above: The validity of the calculated GFR & GFRAA in patients over 70 years has not been determined. Clinical correlation is essential. Serum or plasma thyroid stim ulating hormone (TSH) measurement (units/volume)Ordered By: Estrella Camilo on 11-17-2023 TSH Qn 0.84 uIU/mL 0.358-3.74 [facility] Serum or plasma urea nitroge n measurement (mass/volume)Ordered By: Estrella Camilo on 11-17-2023 Urea nitrogen [Mass/Vol] 16 mg/dL 7-18 [facility] Thin prep Papanicolaou smear with manual screeningOrdered By: Estrella Camilo on 11-17-2023 Thin prep Papanicolaou smear with manual screening 3.4 g/dL 3.2-5.0 [facility] Thin prep Papanicolaou smear with manual screening 24 U/L 15-37 [facility] Thin prep Papanicolaou smear with manual screening 5 5-15 [facility] [place] 03-25-2023 CNPN Telephone (HEMAWS) GRACIELA SAMANIEGO ([id number]) 1965 F Date Time Provider Department 03/25/23 TRAMAINE BOOTHE During your visit today, we recorded the following information about you: Yoselyn Esquivel 03/25/2023 2:55 PM Signed Patient called asking to transfer back to our office. Last visit was 2013. She is having records faxed to [facility]. She states she is seen annually with mamm. Didi Choudhary LPN 04/08/2023 1:45 PM Addendum Records received. [...] HCL (WELLBUTRIN ORAL) Take by mouth. - acetaminophen-HYDROcodo ne 5-500 mg tablet Take 1 tablet by mouth every 6 hours as needed. - B.ANI/L.ACI/L.WIL/L.AUDIE N/L.VIANEY (PROBIOTIC FORMULA ORAL) Take by mouth. - gabapentin 300 mg capsule Take 1 capsule by mouth three times daily as needed. Problem List As Of Date 03/25/2023 Noted Resolved SEBACEOUS CYST [L72.3] 03/24/2009 Abnormal mammogram [R92.8] 02/16/2013 Breast cancer [C50.919] 03/22/2013 Encounter Status:Closed by SRAVANMARYNellie SANABRIA on 04/08/23 Normal [facility] MAMMO DIAGNOSTIC WITH LARY B ILATERALon 05-06-2018 MAMMO DIAGNOSTIC WITH LARY BILATERAL EXAM: US BREAST LIMITED UNILATERAL LEFT, MAMMO DIAGNOSTIC WITH LARY BILATERAL,05/06/2018 10:41 AM (accession [id number]), 05/06/2018 11:20 AM ([id number])CLIN ICAL INDICATIONS: Left mastectomy and reconstruction. PalpableabnormalityCOMP ARISON: Compared to prior study dated April 23, [...] Negative right mammogram.BI-RADS: 3: Probably benignRecommendation: 6-month follow-up.Recommendatio n Laterality: Left Abnormal [facility] MAMMO DIAGNOSTIC WITH LARY R IGHTon 05-06-2018 MAMMO DIAGNOSTIC WITH LARY RIGHT EXAM: MAMMO DIAGNOSTIC WITH LARY RIGHT, 05/06/2018 09:40 AMCLINICAL INDICATIONS: 53-year-old female with history of left breast IDCstatus post mastectomy in 2012. No current breast complaints.COMPARISON: No prior studies available for comparison.TECHNIQUE:2- D MLO and CC views were obtained of the right breast. 3-D MLO and CC digitaltomosynthesis images were also acquired. Computer aided detection wasutilized.FINDINGS: The breast has scattered areas of fibroglandular density. Stable biopsy clipin the upper central right breast. There are no new suspicious masses,calcifications, or architectural distortions. IMPRESSION:No specific mammographic evidence of malignancy.BI-RADS: 2: BenignRecommendation: Routine mammography.Recommendat ion Laterality: Right I personally viewed and interpreted these images and I have reviewed andapproved this report. Normal [facility] US BREAST LIMITED UNILATERAL LEFTon 05-06-2018 US BREAST LIMITED UNILATERAL LEFT EXAM: US BREAST LIMITED UNILATERAL LEFT, MAMMO DIAGNOSTIC WITH LARY BILATERAL,05/06/2018 10:41 AM (accession [id number]), 05/06/2018 11:20 AM ([id number])CLIN ICAL INDICATIONS: Left mastectomy and reconstruction. PalpableabnormalityCOMP ARISON: Compared to prior study dated April 23, [...] Negative right mammogram.BI-RADS: 3: Probably benignRecommendation: 6-month follow-up.Recommendatio n Laterality: Left Abnormal [facility] Vital Signs Date Time Vital Sign Value Performing Clinician Franklyn oconnell 12-15-2024 14:53-0400 Body height 162.56 cm Estrella Camilo MD Work Phone: [facility] Encounters Encounter Date Encounter Type Care Provider Facility Start: 12-22-2024 End: 12-22-2024 ambulatory Estrella Camilo MD Work Phone: [facility] Work Phone: Start: 12-22-2024 End: 12-22-2024 [facility] F[facility]IS WHEEL ATTENDANT-C [facility] Work Phone: Start: 12-22-2024 End: 12-22-2024 ambulatory [facility] Facility:[facility] Start: 12-15-2024 End: 12-15-[address] Estrella Camilo MD -Outpatient Bone Densitometry Work Phone: Start: 12-15-2024 End: 12-15-2024 ambulatory [facility] Facility:[facility] Start: 12-03-2024 End: 12-03-[address] Estrella Camilo MD -Outpatient Breast Imaging Work Phone: Start: 12-03-2024 End: 12-03-2024 ambulatory [facility] Facility:[facility] Start: 06-08-2024 End: 06-08-2024 ambulatory [facility] Facility:[facility] Start: 11-17-2023 End: 11-17-2023 ambulatory [facility] Work Phone: Start: 11-17-2023 End: 11-17-2023 Patient encounter procedure [facility] Work Phone: Start: 03-25-2023 Telephone encounter Tramaine adkins DO Work Phone: Hematology/Oncology Comment on above: Appointment Start: 05-15-2022 End: 05-15-2022 ambulatory [facility] Work Phone: Start: 05-15-2022 End: 05-15-2022 Patient encounter procedure [facility] Start: 05-06-2018 Patient encounter FRANKI SANCHEZ I [facility] Start: 05-06-2018 Patient encounter LORENZO Vivar [facility] Start: 10-22-2017 Patient encounter MICHELE MONTANO [facility] Start: 03-30-2014 End: 03-30-2014 Telephone encounter Lashawn Ponce APRN.CNP Work Phone: Mammogram Procedures Date Procedure Procedure Detail Performing Clinician Start: 12-22-2024 Ultrasonography of breast Estrella Camilo MD Work Phone: Start: 12-15-2024 Dual energy X-ray absorptiometry Estrella Camilo MD Work Phone: Start: 12-03-2024 Screening mammograph y of right breast Estrella Camilo MD Work Phone: Start: 05-15-2022 Screening mammograph y of right breast Start: 02-07-2014 Mammography Lashawn lugo APRN.CNP Work Phone: Plan of Treatment Date Care Activity Detail Author Start: 04-18-2023 Influenza vaccination INFLUENZA (#1) [facility] Start: 08-18-2022 DEPRESSION ASSESSMENT DEPRESSION ASS ESSMENT [facility] Start: 04-18-2021 Influenza vaccination INFLUENZA (Sea son Ended) [facility] Start: 02-01-2018 HPV TESTING HPV TESTING [facility] Start: 02-01-2018 PAP TESTING PAP TESTING [facility] Start: 02-25-2016 Screening for malign ant neoplasm of colon [facility] Start: 02-25-2016 SHINGRIX VACCINE (1 of 2) SHINGRIX V ACCINE (1 of 2) [facility] Start: 02-07-2015 Mammography MAMMOGRAM [facility] Start: 2011 COLOGUARD (FIT-DNA) COLOGUARD (FIT-D NA) [facility] Start: 2011 Colonoscopy COLONOSCOPY [facility] Start: 2011 COLORECTAL CANCER SCREENING COLORECTAL CANCER SCREENING [facility] Start: [address] COLONOGRAPHY [facility] Start: 2011 DIABETES SCREEN DIABETES SCREEN [facility] Start: 2011 FECAL OCCULT BLOOD FECAL OCCULT BLOO D [facility] Start: 2011 LIPID SCREEN LIPID SCREEN [facility] Start: 2011 SIGMOIDOSCOPY SIGMOIDOSCOPY [facility] Start: 1985 Urine microalbumin profile DTAP,TDAP ,TD (1 - Tdap) [facility] Start: 02-25-1984 HEPATITIS C SCREENING HEPATITIS C SC REENING [facility] Start: 02-25-1984 HIV SCREENING HIV SCREENING [facility] Start: 1978 Adult depression scr eening assessment DEPRESSION SCREENING [facility] Start: 1965 COVID-19 VACCINE (#1) COVID-19 VACCI NE (#1) [facility] Start: 1965 HEPATITIS B (1 of 3 - 3-dose series) HEPATITIS B (1 of 3 - 3-dose series) [facility] Immunizations Immunization Date Immunization Notes Care Provider Fa cility 11-21-2020 Covid (Pfizer) [facility] 10-31-2020 Covid (Pfizer) [facility] Payers Date Payer Category Payer Self-pay [id number] 2024 Unknown [id number] 2024 Self-pay [id number] 2024 Unknown [id number] 2016 Unknown [id number] 2013 Unknown 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MED [id number] 2013-Present Indemnity [id number] Unknown ANTHEM [id number] Unknown [id number] Unknown [id number] Unknown [id number] Unknown [id number] Social History Date Type Detail Facility Start: 12-06-2013 End: 05-31-2020 Tobacco smoking status NHIS Never smoker [facility] Work Phone: Start: 02-01-2013 End: 12-06-2013 Tobacco use and exposure Never used [facility] Start: 12-06-2013 End: 03-31-2022 Alcohol intake Current drinker of alcohol (finding) [facility] Start: 06-01-2013 Alcohol Comment rarely [facility] Start: 1965 Sex Assigned At Not on file [facility] Start: 05-31-2020 [facility] Start: 1965 Sex Assigned At Female [facility] Start: 03-31-2022 History of Social function [facility] Start: 03-31-2022 Tobacco use panel [facility] Radiology Diagnostic study note 12-22-2024 Note Date & Type Note Facility 12-22-2024 [address] note [facility] Imaging Services [address] [place] [address] Breast Limited Unilateral MR#: [id number] Acct: [id number] Name: GRACIELA SAMANIEGO Rep #: [id number] : 1965 F [id number] From: Shannen Mishra MD PCP: Dr. Estrella Camilo MD Status: REG CL I Study:Breast Limited Unilateral Date of Exam: 12/22/24 Exam# [id number] Ordering Dr: Yaw Delvalle NP [employer]END[employer]-C PROCEDURE: BREAST LIMITED UNILATERAL 12/22/2024 REASON FOR EXAM: 59-year-old female presents with right breast pain. Personal history of left breast cancer status post mastectomy with reconstruction in 2012. TECHNIQUE: Targeted right breast ultrasound. COMPARISON: Mammogram 12/03/2024. FINDINGS: Right breast ultrasound was targeted to the lateral right breast. There are no suspicious sonographic findings in the area of patient's reported pain in the lateral right breast. Otherwise, the breast tissue appears sonographically normal. No cyst, solid mass, or suspicious shadowing. US/Breast Limited Unilateral IMPRESSION: Impression: There are no suspicious findings in the area of patient's reported pain in the lateral right breast. Clinical management is recommended for the pain. Birads: BI-RADS 1: NEGATIVE. RECOMMEND ANNUAL MAMMOGRAPHIC SCREENING. Reading Location: [id number] CC: Yaw FARAH [employer] WHE[employer] ATTENDANT-C Mook; Dr. Estrella Camilo MD ~ Automatic Edger: Signed [facility] Note 04-08-2023 Telephone Encounter - Didi Choudhary [...] Left stating the same. Didi Choudhary LPN Patient called asking to transfer back to our office. Last visit was 2013. She is having records faxed to [facility]. She states she is seen annually with mamm. documented in this encounter [facility] Note 03-30-2014 Telephone Encounter - Lashawn Ponce) - 03/30/2014 3:24 PM EDTTelephone Encounter - Coleen Ken - 03/30/2014 2:46 PM EDT Note Date & Type Note Facility 03-30-2014 Miscellaneous Notes I do not see it in EPIC. Lashawn Ponce CNP Did the patient ever provide a report following her imaging at [facility]? Thanks. documented in this encounter [facility] Evaluation note Note Date & Type Note Facility Evaluation note No assessment information availa ble [facility] Work Phone: Reason for referral (narrative) Note Date & Type Note Facility Reason for referral (narrative) No reason for referral information available [facility] Work Phone: Summary Purpose Family History No Family History Records Found Relationship Condition Age at Onset Recorded Date/T himanshu father Diabetes mellitus Unknown Heart failure Unknown uncle Diabetes mellitus Unknown grandmother Cerebrovascular accident (CVA) Unknown Advance Directives No Advanced Directives Records Found Advance Directive Response Recorded Date/ Time Advance Directives No June 4:34pm Living Will No November 09, 2018 4:55pm Power of Senior Assistant Manager No November 09 4:55pm Advance Directive Response Recorded Date/ Time Advance Directives No June 4:34pm Chief Complaint and Reason for Visit Chief Complaint SCREENING Chief Complaint Admit Date SCREENING December 03, 2024 3:1 4pm SCREENING December 15, 2024 2:5 1pm LUMP RT BREAST, PREV MASECTOMY OF LT RUSTY AST December 22, 2024 12:48pm Additional Source Comments INFORMATION SOURCE (unrecogn ized section and content) DATE CREATED AUTHOR 06/02/2018 [facility] DATE CREATED AUTHOR AUTHOR'S ORGANIZ ATION 04/09/2023 [facility] DATE CREATED AUTHOR AUTHOR'S ORGANIZ ATION 12/28/2024 [facility] Source Comments (unrecognize d section and content) In the event this informatio n is protected by the Federal Confidentiality of Alcohol and Drug Abuse Patient Records regulations: The Federal rules restrict any use of the information to criminally investigate or prosecute any alcohol or drug abuse patient.[facility] the event this information is protected by the Federal Confidentiality of Alcohol and Drug Abuse Patient Records regulations: The Federal rules restrict any use of the information to criminally investigate or prosecute any alcohol or drug abuse patient.[facility] Goals (unrecognized section and content) Goals may be documented in a n alternate sectionGoals may be documented in an alternate sectionGoals may be documented in an alternate section Reason for Visit (unrecogniz ed section and content) Reason Comments Appointment Care Teams (unrecognized sec tion and content) Team Status: Active Member Role Status Dates Dr. Andria Soni MD Family Provider Active Estrella Camilo MD Primary Care Provider Active Team Status: Inactive Member Role Status Dates Estrella Camilo MD Primary Care Provide r, Attending Provider, Referring Provider Active Team Status: Active Member Role Status Eloy Camilo MD Primary Care Provider Active Team Status: Inactive Member Role Status Eloy Camilo MD Primary Care Provider Active St art: December 03, 2024 End: December 03, 2024 Estrella Camilo MD Attending Provider Active Start : December 03, 2024 End: December 03, 2024 Estrella Camilo MD Referring Provider Active Start : December 03, 2024 End: December 03, 2024 Team Status: Inactive Member Role Status Eloy Camilo MD Primary Care Provider Active St art: December 15, 2024 End: December 15, 2024 Estrella Camilo MD Attending Provider Active Start : December 15, 2024 End: December 15, 2024 Estrella Camilo MD Referring Provider Active Start : December 15, 2024 End: December 15, 2024 Team Status: Inactive Member Role Status Eloy Camilo MD Primary Care Provider Active St art: December 22, 2024 End: December 22, 2024 Yaw Delvalle [employer]EL ATTENDANT, [employer] ATTENDANT-C Attending Provider Active Start: December 22, 2024 End: December 22, 2024 Yaw Delvalle [employer] WHEEL ATTENDANT, [employer] ATTENDANT-C Referring Provider Active Start: December 22, 2024 End: December 22, 2024 FOR RECORDS PERTAINING TO PATIENTS WHO ARE [...] BE BASED ON THE PRIMARY CLINICAL RECORDS. [facility] [employer] provides no warranty or guarantee of the accuracy or completeness of information in this document.
== END | disposition home or self-care (01) ==
LOC: MTRAD 14:51
PROVIDERS: PCP Family Medicine; Referring Provider Family Medicine; Visit Provider Family Medicine
DX: M79.642 Pain in left hand (principal)
CPT/HCPCS: 73130

== ENCOUNTER → 2025-08-05 | Outpatient (CLI) | payer BC, SELFPAY ==
--- OUTSIDE RECORDS SUMMARY | 2025-08-05 17:07 | XMS RPT_ITS | CCD ---
Author Organization [facility] CliniSyde Care Team Providers Care Hardwood Floor Finisher Name Role Phone ANTONI, LORENZO A Unavailable [...] Provider UnavailEstrella Chopra MD Primary Care Provider [phone] Estrella Camilo MD Attending Provider Ton QUIROZ, Estrella Referring Provider McMorrow PANEL RAISER OPERATOR-CYaw Attending Provider McMorrow PANEL RAISER OPERATOR-C, Yaw Referring Provider Estrella Camilo Attending Unavailable Ton, Chalon Referring Unavailable Ton, Chalon Primary Care Unavailable Ton, Chalon Attending Unavailable Ton, Chalon Referring Unavailable Ton, Chalon Primary Care Unavailable Ton, Chalon Attending Unavailable Ton, Chalon Referring Unavailable Ton, Chalon Primary Care Unavailable Ton, Chalon Attending Unavailable Ton, Chalon Referring Unavailable Ton, Chalon Primary Care Unavailable McMorrow PANEL RAISER OPERATORYaw Attending Unavailable McMorrow PANEL RAISER OPERATORYaw Referring Unavailable Ton, Chalon Primary Care Unavailable Allergies Allergy Classification Reported Allergen(s) Allergy Type Date of Onset Reaction(s) Facility Adhesive Tape (1 source) Adhesive Tape Substance Allergy 3 Rash [facility] Macrolides (antibiotic) (1 source) Azithromycin Drug Allergy 9 [facility] (1 source) Adhesive Tape Allergy to substance 0 [facility] Work Phone: (5 sources) Azithromycin Drug Allergy 9 [facility] (1 source) Adhesive Tape Allergy to substance 3 [facility] (4 sources) Adhesive Tape; Translations: [adhesive tape] Allergy to substance 2 [facility] (1 source) Azithromycin Drug Allergy 1 [facility] Repository Medications Completed/Discontinued Medications Medication Drug Class(es) [...] on above: Take 1 capsule by mo ut three times daily as needed. tamoxifen 20 [...] on above: Take 1 tablet by chrissy once daily. TAKE 1 TABLET DAILY Problems Active Problems Problem Classification Problem Date Documented Da te Episodic/Chronic Cancer of breast (2 sources) Malignant tumor of breast ; Translations: [Malignant neoplasm of unspecified site of unspecified female breast] Onset: 03-22-2013 03-22-2013 Chronic Cancer of breast (4 sources) History of malignant neoplasm of breast; Translations: [Personal history of malignant neoplasm of breast] 06-06-2021 Episodic Comment on above: Left Breast Cancer s tage IA(pT1a pN0 M0), ER/NH positive, Her2 negative.Finished adjuvant Tamoxifen therapy in April 2018.No evidence of disease clinically. Nonmalignant breast conditions (4 sources) Mammographic breast tissue appearance; Translations: [Dense breast tissue on mammogram] Onset: 12-27-2024 06-03-2022 Episodic Other connective tissue disease (1 source) Pain in left hand; Translations: [Pain in left hand] Onset: 01-28-2025 Episodic Other screening for suspected conditions (not mental disorders or infectious disease) (3 sources) Mammography abnormal; Translations: [Other abnormal and inconclusive findings on diagnostic imaging of breast] Onset: 02-16-2013 02-16-2013 Episodic Residual codes; unclassified (4 sources) Generalized aches and pains; Translations: [Pain, [...] Test Name Value Interpretation Reference Range Facility Hand Min 3 Viewson Hand Min 3 Views [facility] [address] [place], [place] [id number] Hand Min 3 Views MR#: [id number] Acct: [id number] Name: GRACIELA SAMANIEGO Rep #: [id number] : 1965 F 59 From: Heidi barajas MD PCP: Dr. Estrella Camilo MD Status: REG CLI Study: Hand Min 3 Views Date of Exam: 01/24/25 Exam# [id number] Ordering Dr: Estrella Camilo MD PROCEDURE: HAND MIN 3 VIEWS 01/24/2025 REASON FOR EXAM: LEFT HAND INJURY TECHNIQUE: 4 view(s) of the left hand COMPARISON: None. FINDINGS: Normal visualized carpal bones. Normal first metacarpus. Normal second through fifth metacarpi. Normal phalanges. There is no demonstrated fracture. Normal carpal articulations. Normal carpometacarpal (CMC) articulation of the thumb. Normal metacarpophalangeal (MCP) joint of the thumb. Normal interphalangeal (IP) joint of the thumb. Normal second through fifth carpometacarpal (CMC) joints. Normal second through fifth metacarpophalangeal (MCP) joints. Normal proximal interphalangeal (PIP) and distal interphalangeal (DIP) joints of the second through fifth fingers. RAD/Hand Min 3 Views IMPRESSION: No evidence for acute abnormality. Reading [facility] CC: Dr. Estrella Camilo MD Hydrography Teacher: Signed Normal [facility] Breast Limited Unilateralon 12-22-2024 Breast Limited Unilateral [facility] [address] [place], [place] [id number] Breast Limited Unilateral MR#: [id number] Acct: [id number] Name: GRACIELA SAMANIEGO Rep #: [id number] : 1965 F 59 From: Safia Mishra MD PCP: Dr. Estrella Camilo MD Status: REG CLI Study: Breast Limited Unilateral Date of Exam: Exam# [id number] Ordering Dr: Yaw Delvalle NP, NP PROCEDURE: BREAST LIMITED UNILATERAL 12/22/2024 REASON FOR [...] NEGATIVE. RECOMMEND ANNUAL MAMMOGRAPHIC SCREENING. Reading Location: [id number] CC: Yaw Delvalle; Dr. Estrella Camilo MD Hydrography Teacher: Signed Normal [facility] Dexa Bone Density Studyon Dexa Bone Density Study [facility] [address] [place] [address] Dexa Bone Density Study MR#: [id number] Acct: [id number] Name: GRACIELA SAMANIEGO Rep #: [id number] : 1965 F 59 From: Naheed Vivar PCP: Dr. Estrella Camilo MD Status: DEP CLI Study: Dexa Bone Density Study Date of Exam: 12/15/24 Exam# [id number] Ordering Dr: Estrella Camilo MD PROCEDURE: DEXA BONE DENSITY STUDY 12/15/2024 REASON FOR EXAM: F, age 59 y/o . Patient is postmenopausal.. TECHNIQUE: DEXA scan of sites with data reported below. Scanner utilized: Udex. REFERENCE LINKS: ISCD Adult Positions COMPARISON: None [...] Recommend follow-up as clinically warranted. Reading Location: DYN-EVTYN-RO CC: Dr. Estrella Camilo MD Hydrography Teacher: Signed Normal [facility] SCREEN MAMM (CAD) W/[facility] Dmitry 12-03-2024 SCREEN MAMM (CAD) W/LARY UNI R [facility] [address] [place] [address] SCREEN MAMM (CAD) W/LARY UNI R MR#: [id number] Acct: [id number] Name: JAMINTHAISGRACIELA KAY Rep #: [id number] : 1965 F 59 From: Safia Mishra MD PCP: Dr. Estrella Camilo MD Status: REG CLI Study: SCREEN MAMM (CAD) W/LARY UNI R Date of Exam: 0 12/03/24 Exam# [id number] Ordering Dr: Estrella Camilo MD EXAM: SCREEN [...] be mailed to the patient. Reading Location: [facility] CC: Dr. Estrella Camilo MD Hydrography Teacher: Signed Normal [facility] Abdomen Single Viewon 2023 Abdomen Single View [facility] [address] [place] [id number] Abdomen Single View MR#: [id number] Acct: [id number] Name: GRACIELA SAMANIEGO Rep #: [id number] : 1965 F 59 From: Russ Benjamin PCP: Dr. Estrella Camilo MD Status: REG CLI Study: Abdomen Single View Date of Exam: 06/08/24 Exam# [id number] Ordering [place]: [place] [id number] INDICATION: UTI EXAMINATION/TECHNIQUE: X-RAY - XR Abdomen [...] EDT , CC: Dr. Estrella Camilo MD Hydrography Teacher: Signed Normal [facility] Absolute lymphocyte countOrd ered By: Estrella Camilo on 11-17-2023 Lymphocytes Auto (Unsp spec) [#/Vol] 1.97 10*3/uL 0.83-4.51 [facility] Automated lymphocyte count a s percentage of total leukocytesOrdered By: Estrella Camilo on 11-17-2023 Lymphocytes/100 WBC Auto (Unsp spec) 33.3 % 19-41 [facility] Basophil percentageOrdered B y: Estrella Camilo on 11-17-2023 Basophils/100 WBC (Bld) 0.7 % 0-1 [facility] Bilirubin [Mass/Vol] 0.50 mg/dL 0.20-1.00 [facility] Comment on above: For patients on eltr ombopag therapy, use of Dimension Melba TBIL is not recommended. Chloride [Moles/Vol] 109 mmol/L 98-107 [facility] Cholesterol [Mass/Vol] 238 mg/dL <200 [facility] Comment on above: <200 mg/dL Desirable 200-240 mg/dL Borderline >240 mg/dL High Risk Eosinophils/100 WBC (Bld) 4.1 % 0-5 [facility] Glucose [Mass/Vol] 94 mg/dL 74-106 [facility] Hemoglobin (Bld) [Mass/Vol] 13.2 g/dL 12.0-15.0 [facility] Monocytes/100 WBC (Bld) 6.3 % 0-10 [facility] Neutrophils (Bld) [#/Vol] 3.3 10*3/uL 2.0-7.7 [facility] Neutrophils/100 WBC (Bld) 55.3 % 47-70 [facility] Potassium [Moles/Vol] 3.9 mmol/L 3.5-5.1 [facility] Protein [Mass/Vol] 7.0 g/dL 6.4-8.2 [facility] Sodium [Moles/Vol] 141 mmol/L 136-145 [facility] Triglyceride [Mass/Vol] 79 mg/dL <199 [facility] Comment on above: The drugs N-Acetylcy steine and Metamizole may falsely depress this assay.Serum Triglycerides Reference Interval Normal <150 mg/dL Borderline high 150 - 199 mg/dL High 200 - 499 mg/dL Very High > or = 500 mg/dL WBC (Bld) [#/Vol] 5.9 10*3/uL 4.4-11.0 [facility] Determination of erythrocyte mean corpuscular volume (MCV)Ordered By: Estrella Camilo on 11-17-2023 MCV (RBC) [Entitic vol] 92.2 fL 81-99 [facility] Erythrocyte distribution wid th ratioOrdered By: Estrella Ton on 11-17-2023 Erythrocyte distribution width (RBC) [Ratio] 12.2 % 11.6-14.6 [facility] Erythrocyte distribution wid th standard deviationOrdered By: Estrella Ton on 11-17-2023 Erythrocyte distribution width (RBC) [Entitic vol] 41.3 fL 35.1-43.9 [facility] Hematocrit Auto (Bld) [Volum e fraction]Ordered By: Estrella Camilo on 11-17-2023 Hematocrit (Bld) [Volume fraction] 40.3 % 37-47 [facility] Immature granulocytes/100 WB C Auto (Bld)Ordered By: Estrella Camilo on 11-17-2023 Immature granulocytes/100 WBC (Bld) 0.300 % 0.0-0.9 [facility] Comment on above: IG% - Immature Granu locytes (promyelocytes, myelocytes and metamyelocytes) > 1% indicates that a LEFT SHIFT is Present. Laboratory - Chemistry and C hemistry - challengeOrdered By: Estrella Camilo on 11-17-2023 Albumin/Globulin [Mass ratio] 0.9 {ratio} 0.9-2.4 [facility] ALP [Catalytic activity/Vol] 91 U/L 45-117 [facility] ALT [Catalytic activity/Vol] 27 U/L 13-56 [facility] Cholesterol in HDL [Mass/Vol] 61 mg/dL >40 [facility] Comment on above: The drugs N-Acetylcy steine and Metamizole may falsely depress this assay. Reference Range HDL <40 mg/dL Low HDL Cholesterol HDL >or= 60 mg/dL High HDL Cholesterol Cholesterol in LDL [Mass/Vol] 161 mg/dL 0-130 [facility] CO2 [Moles/Vol] 27.0 mmol/L 21.0-32.0 [facility] Globulin (S) [Mass/Vol] 3.6 g/dL 2.2-4.2 [facility] Urea nitrogen/Creatinine [Mass ratio] 23.6 mg/mg 10-20 [facility] Laboratory - Hematology and Cell countsOrdered By: Estrella Camilo on 11-17-2023 MCH (RBC) [Entitic mass] 30.2 pg 27.0-32.0 [facility] MCHC (RBC) [Mass/Vol] 32.8 g/dL 32-36 [facility] Nucleated RBC/100 WBC (Bld) [Ratio] 0 % 0-5 [facility] Platelet mean volume (Bld) [Entitic vol] 10.2 fL 6.2-12.0 [facility] Platelets (Bld) [#/Vol] 312 10*3/uL 150-450 [facility] No Panel InformationOrdered By: Estrella Camilo on 11-17-2023 Estimated GFR (MDRD) Amer 115 mL/min >60 [facility] Comment on above: GFR Calc Estimated GFR (MDRD) Non-Af Amer 95 mL/min >60 [facility] Comment on above: Non- GFR Calc Vitamin D 25-Hydroxy 37.1 ng/mL [facility] Comment on above: Vitamin D 25(OH) Sta tus Range Deficiency <20 ng/mL (50nmol/L) Insufficiency 20 - 30 ng/mL (50 - 75 nmol/L) Sufficiency 30 - 100 ng/mL (75 - 250 nmol/L) Toxicity >100 ng/mL (>250 nmol/L) VLDL Cholesterol 16 mg/dL 5-40 [facility] RBC Auto (Bld) [#/Vol]Ordere d By: Estrella Camilo on 11-17-2023 RBC (Bld) [#/Vol] 4.37 10*6/uL 4.2-5.4 [facility] Serum or plasma calcium xuan urement (mass/volume)Ordered By: Estrella Camilo on 11-17-2023 Calcium [Mass/Vol] 8.7 mg/dL 8.5-10.1 [facility] Serum or plasma creatinine m easurement (mass/volume)Ordered By: Estrella Camilo on 11-17-2023 Creatinine [Mass/Vol] 0.68 mg/dL 0.55-1.02 [facility] Comment on above: The validity of the calculated GFR & GFRAA in patients over 70 years has not been determined. Clinical correlation is essential. Serum or plasma thyroid stim ulating hormone (TSH) measurement (units/volume)Ordered By: Estrella Camilo on 11-17-2023 TSH Qn 0.84 uIU/mL 0.358-3.74 [facility] Serum or plasma urea nitroge n measurement (mass/volume)Ordered By: Estrella Camilo on 11-17-2023 Urea nitrogen [Mass/Vol] 16 mg/dL 7-18 [facility] Thin prep Papanicolaou smear with manual screeningOrdered By: Estrella Camilo on 11-17-2023 Thin prep Papanicolaou smear with manual screening 3.4 g/dL 3.2-5.0 [facility] Thin prep Papanicolaou smear with manual screening 24 U/L 15-37 [facility] Thin prep Papanicolaou smear with manual screening 5 5-15 [facility] CNPNon 03-25-2023 CNPN Telephone ([employer]) GRACIELA SAMANIEGO ([id number]) 1965 F Date Time Provider Department 03/25/23 TRAMAINE BOOTHE During your visit today, we recorded the following information about you: Fco King Yoselyn 03/25/2023 2:55 PM Signed Patient called asking to transfer back to our office. Last visit was 2013. She is having records faxed to [facility]. She states she is seen annually with [...] by DIDI CHOUDHARY LPN on 04/08/23 Normal [facility] MAMMO DIAGNOSTIC WITH LARY B ILATERALon 05-06-2018 MAMMO DIAGNOSTIC WITH LARY BILATERAL EXAM: US BREAST LIMITED UNILATERAL LEFT, MAMMO DIAGNOSTIC WITH LARY BILATERAL,05/06/2018 10:41 AM (accession [id number]), 05/06/2018 11:20 AM ([id number])CLIN ICAL INDICATIONS: Left mastectomy and reconstruction. PalpableabnormalityCOMP [...] benignRecommendation: 6-month follow-up.Recommendatio n Laterality: Left Abnormal [facility] MAMMO DIAGNOSTIC WITH LARY R IGHTon [...] I have reviewed andapproved this report. Normal [facility] US BREAST LIMITED UNILATERAL LEFTon 05-06-2018 US BREAST LIMITED UNILATERAL LEFT EXAM: US BREAST LIMITED UNILATERAL LEFT, MAMMO DIAGNOSTIC WITH LARY BILATERAL,05/06/2018 10:41 AM (accession [id number]), 05/06/2018 11:20 AM ([id number])CLIN ICAL INDICATIONS: Left mastectomy and reconstruction. PalpableabnormalityCOMP [...] benignRecommendation: 6-month follow-up.Recommendatio n Laterality: Left Abnormal [facility] Vital Signs Date Time Vital Sign Value Performing Clinician Franklyn oconnell 12-15-2024 14:53-0400 Body height 162.56 cm Estrella Camilo MD Work Phone: [facility] Encounters Encounter Date Encounter Type Care Provider Facility Start: 01-24-2025 End: 01-24-2025 ambulatory Estrella Camilo MD Work Phone: [facility] Work Phone: Start: 01-24-2025 End: 01-24-[address] Estrella Camilo MD -[facility] [place] Work Phone: Start: 01-24-2025 End: 01-24-2025 ambulatory Estrella Camilo Facility:[facility] Start: 12-22-2024 End: 12-22-2024 ambulatory Estrella Camilo MD Work Phone: [facility] Work Phone: Start: 12-22-2024 End: 12-22-2024 Patient encounter procedure Yaw Delvalle PANEL RAISER OPERATOR-C -[facility] Work Phone: Start: 12-22-2024 End: 12-22-2024 ambulatory Yaw Delvalle PANEL RAISER OPERATOR Facility:[facility] Start: 12-15-2024 End: 12-15-[address] Estrella Camilo MD -Outpatient Bone Densitometry Work Phone: Start: 12-15-2024 End: 12-15-2024 ambulatory [facility] Facility:[facility] Start: 12-03-2024 End: 12-03-[address] Estrella Camilo MD -Outpatient Breast Imaging Work Phone: Start: 12-03-2024 End: 12-03-2024 ambulatory [facility] Facility:[facility] Start: 06-08-2024 End: 06-08-2024 ambulatory [facility] Facility:[facility] Start: 11-17-2023 End: 11-17-2023 ambulatory [facility] Work Phone: Start: 11-17-2023 End: 11-17-2023 Patient encounter procedure [facility] Work Phone: Start: 03-25-2023 Telephone encounter Tramaine adkins DO Work Phone: Hematology/Oncology Comment on above: Appointment Start: 05-15-2022 End: 05-15-2022 ambulatory [facility] Work Phone: Start: 05-15-2022 End: 05-15-2022 Patient encounter procedure [facility]-Outpatient Breast Imaging Start: 05-06-2018 Patient encounter FRANKI SANCHEZ I [facility] Start: 05-06-2018 Patient encounter LORENZO Vivar [facility] Start: 10-22-2017 Patient encounter MICHELE MONTANO [facility] Start: 03-30-2014 End: 03-30-2014 Telephone encounter Lashawn Ponce APRN.CNP Work Phone: Mammogram Procedures Date Procedure Procedure Detail Performing Clinician Start: 01-24-2025 Plain x-ray of hand Carisa Camilo MD Work Phone: Start: 12-22-2024 Ultrasonography of breast Estrella Camilo MD Work Phone: Start: 12-15-2024 Dual energy X-ray absorptiometry Estrella Camilo MD Work Phone: Start: 12-03-2024 Screening mammograph y of right breast Estrella Camilo MD Work Phone: Start: 05-15-2022 Screening mammograph y of right breast Start: 02-07-2014 Mammography Lashawn Lilian lugo [employer]EN FOODS MANAGER.MILITARY [employer] Work Phone: Plan of Treatment Date Care [...] Hospital Start: [address] COLONOGRAPHY [facility] Start: 2011 DIABETES SCREEN DIABETES SCREEN [facility] Start: 2011 FECAL OCCULT BLOOD FECAL OCCULT BLOO D [facility] Start: 2011 LIPID SCREEN LIPID SCREEN [facility] Start: 2011 SIGMOIDOSCOPY SIGMOIDOSCOPY [facility] Start: 1985 Urine microalbumin profile DTAP,TDAP ,TD (1 - Tdap) [facility] Start: 02-25-1984 HEPATITIS C SCREENING HEPATITIS C SC GLO [facility] Start: 02-25-1984 HIV SCREENING HIV SCREENING [facility] Start: 1978 Adult depression scr eening assessment DEPRESSION SCREENING [facility] Start: 1965 COVID-19 VACCINE (#1) COVID-19 VACCI NE (#1) [facility] Start: 1965 HEPATITIS B (1 of 3 - 3-dose series) HEPATITIS B (1 of 3 - 3-dose series) [facility] Immunizations Immunization Date Immunization Notes Care Provider Fa cility 11-21-2020 Covid (Pfizer) [facility] 10-31-2020 Covid (Pfizer) [facility] Payers Date Payer Category Payer Self-pay [id number] 2024 Unknown [id number] 2024 Self-pay [id number] 2024 Unknown [id number] 2016 Unknown [id number] 2013 Unknown 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[employer] [id number] 2013-Present Indemnity [id number] Unknown ANTHEM [id number] Unknown [id number] Unknown [id number] Unknown [id number] Unknown [id number] Unknown [id number] Social History Date Type Detail Facility Start: 12-06-2013 End: 05-31-2020 Tobacco smoking status NHIS Never smoker [facility] Work Phone: Start: 02-01-2013 End: 12-06-2013 Tobacco use and exposure Never used [facility] Start: 12-06-2013 End: 03-31-2022 Alcohol intake Current drinker of alcohol (finding) [facility] Start: 06-01-2013 [facility] Start: 1965 Sex Assigned At Not on file [facility] Start: 05-31-2020 Tobacco smoking stat us [facility] Unknown if ever smoked [facility] Start: 1965 Sex Assigned At Female [facility] Start: 03-31-2022 History of Social function [facility] Start: 03-31-2022 Tobacco use panel [facility] Radiology Diagnostic study note 01-25-2025 Note Date & Type Note Facility 01-25-2025 Radiology Diagnostic study note [facility] [address], [place] [address] Hand Min 3 Views MR#: [id number] Acct: [id number] Name: GRACIELA SAMANIEGO Rep #: [id number] : 1965 F 59 From: Dustin Sen MD PCP: Dr. Estrella Camilo MD Status: REG CL I Study:Hand Min 3 Views Date of Exam: 05/12 Exam# [id number] Ordering Dr: Carisa Camilo MD PROCEDURE: HAND MIN 3 VIEWS 01/24/2025 REASON FOR EXAM: LEFT HAND INJURY TECHNIQUE: 4 view(s) of the left hand COMPARISON: None. FINDINGS: Normal visualized carpal bones. Normal first metacarpus. Normal second through fifth metacarpi. Normal phalanges. There is no demonstrated fracture. Normal carpal articulations. Normal carpometacarpal (CMC) articulation of the thumb. Normal metacarpophalangeal (MCP) joint of the thumb. Normal interphalangeal (IP) joint of the thumb. Normal second through fifth carpometacarpal (CMC) joints. Normal second through fifth metacarpophalangeal (MCP) joints. Normal proximal interphalangeal (PIP) and distal interphalangeal (DIP) joints of the second through fifth fingers. RAD/Hand Min 3 Views IMPRESSION: No evidence for acute abnormality. Reading Location: [place] [address] CC: Dr. Estrella Camilo MD ~ Hydrography Teacher: Signed [facility] Radiology Diagnostic study note 12-22-2024 Note Date & Type Note Facility 12-22-2024 Radiology Diagnostic study note [facility] [address] [place], [place] [id number] Breast Limited Unilateral MR#: [id number] Acct: [id number] Name: GRACILEA SAMANIEGO Rep #: [id number] : 1965 F 59 From: Shannen Mishra MD PCP: Dr. Estrella Camilo MD Status: REG CL I Study:Breast Limited Unilateral Date of Exam: 12/22/24 Exam# [id number] Ordering Dr: Yaw Delvalle NP PANEL RAISER OPERATOR-C PROCEDURE: BREAST LIMITED UNILATERAL 12/22/2024 REASON FOR [...] NEGATIVE. RECOMMEND ANNUAL MAMMOGRAPHIC SCREENING. Reading Location: [id number] CC: Yaw FARAH PANEL RAISER OPERATOR-C Mook; Dr. Estrella Camilo MD ~ Hydrography Teacher: Signed [facility] Note 04-08-2023 Telephone Encounter - Didi Choudhary [...] 2013. She is having records faxed to [facility]. She states she is seen annually with [...] Evaluation note No assessment information availa ble [facility] Work Phone: Reason for referral (narrative) Note Date & Type Note Facility Reason for referral (narrative) No reason for referral information available [facility] Work Phone: Summary Purpose Family History No Family History Records Found Relationship Condition Age at Onset Recorded Date/T himanshu father Diabetes mellitus Unknown Heart failure Unknown uncle Diabetes mellitus Unknown grandmother Cerebrovascular accident (CVA) Unknown Advance Directives No Advanced Directives Records Found Advance Directive Response Recorded Date/ Time Advance Directives No June 4:34pm Living Will No November 09, 2018 4:55pm Power of Lithograph Press Feeder No November 09 4:55pm Advance Directive Response Recorded Date/ Time Advance Directives No June 4:34pm Chief Complaint and Reason for Visit Chief Complaint SCREENING Chief Complaint Admit Date SCREENING December 03, 2024 3:1 4pm SCREENING December 15, 2024 2:5 1pm LUMP RT BREAST, PREV MASECTOMY OF LT RUSTY AST December 22, 2024 12:48pm Chief Complaint Admit Date SCREENING December 03, 2024 3:1 4pm SCREENING December 15, 2024 2:5 1pm LUMP RT BREAST, PREV MASECTOMY OF LT RUSTY AST December 22, 2024 12:48pm EORDER- LEFT HAND January 24, 2025 2:50p m Additional Source Comments INFORMATION SOURCE (unrecogn ized section and content) DATE CREATED AUTHOR 06/02/2018 [facility] DATE CREATED AUTHOR AUTHOR'S ORGANIZ ATION 04/09/2023 [facility] DATE CREATED AUTHOR AUTHOR'S ORGANIZ ATION 01/31/2025 [facility] Source Comments (unrecognize d section and [...] Role Status Eloy Camilo MD Primary Care Provide r, Attending [...] 2024 End: December 22, 2024 Yaw Delvalle PANEL RAISER OPERATOR, PANEL RAISER OPERATOR-C Attending Provider Active Start: December 22, 2024 End: December 22, 2024 Yaw Delvalle PANEL RAISER OPERATOR PANEL RAISER OPERATOR-C Referring Provider Active Start: December 22, 2024 End: December 22, 2024 Team Status: Inactive Member Role Status Eloy Camilo MD Primary Care Provider Active St art: January 24, 2025 End: January 24, 2025 Estrella Camilo MD Attending Provider Active Start : January 24, 2025 End: January 24, 2025 Estrella Camilo MD Referring Provider Active Start : January 24, 2025 End: January 24, 2025 FOR RECORDS PERTAINING TO PATIENTS WHO ARE [...] BE BASED ON THE PRIMARY CLINICAL RECORDS. [facility] provides no warranty or guarantee of the accuracy or completeness of information in this document.
[2025-08-05 18:10] LABS: Hematocrit 41.7 % (37-47); Hemoglobin 14.0 g/dL (12.0-15.0); Mean Corp Hgb Conc 33.6 g/dL (32-36); Mean Corpuscular Volume 91.9 fL (81-99); Mean Platelet Vol. 10.5 fl (6.2-12.0); Platelet Count 354 K/mm3 (150-450); RBC Distribution Width CV 11.9 % (11.6-14.6); RBC Distribution Width SD 40.5 fl (35.1-43.9); Red Blood Count 4.54 M/mm3 (4.2-5.4); White Blood Count 6.6 K/mm3 (4.4-11.0)
[2025-08-05 18:39] LABS: Cholesterol 243 mg/dL (<=200); Low Density Lipoprotein Calc. 152 mg/dL; Triglycerides 123 mg/dL; Very Low Density Lipoprotein 25 mg/dL (5-40); Vitamin D,25 Hydroxy 27.6 ng/mL (30-100); cholesterol:hdl ratio screen 3.48
== END | disposition home or self-care (01) ==
LOC: MTLAB 16:32
PROVIDERS: PCP Family Medicine; Referring Provider Family Medicine; Visit Provider Family Medicine
DX: E55.9 Vitamin D deficiency, unspecified (principal); E78.00 Pure hypercholesterolemia, unspecified; Z13.1 Encounter for screening for diabetes mellitus
CPT/HCPCS: 36415; 80061; 82306; 83036; 84443; 85027